=== PATIENT | female | born 1945 | race African-American/Black ===

== ENCOUNTER 2019-03-28 15:23 | Inpatient (IN) | payer MEDICARE ==
[2019-03-28] MEDS ORDERED: LEVALBUTEROL 0.63 MG/3 ML NEBU IH ONE (15:53)
[2019-03-28] MEDS ORDERED: IPRATROPIUM 0.02% NEBU 2.5 ML IH ONE ×2 (15:53→15:55)
[2019-03-28] MEDS ORDERED: LEVALBUTEROL 1.25 MG/3 ML NEB IH ONE (15:55)
--- NOTE | 2019-03-28 16:02 | Emergency Department Report ---
HPI - General Time Seen by Provider: 03/28/19 15:49 - HPI HPI: Room 4 The patient is a 73-year-old female presenting with a chief complaint of weakness. Family states the patient's been coughing for the past 2-3 days and also has had rhinorrhea for one week. Patient had exhibited increased work of breathing and subsequently family brought patient to the ED for evaluation. Patient denies pain including chest pain but just states she feels weak all over. Patient denies shortness of breath but exhibits labored respirations. Patient has noticed bilateral lotion the swelling for several months. Of note the patient recently drove from [place] to [place] Location: [See above] Duration: [See above] Quality: [See above] Severity: [See above] Timing: [See above] Context: [See above] Modifying factors: [See above] Associated signs and symptoms: [see above] ED Past Medical Hx - Past Medical History Hx Hypertension: Yes Hx Diabetes: Yes Additional medical history: Hypercholesterolemia - Surgical History Hx Cholecystectomy: Yes Additional Surgical History: Knee surgery, hip replacement - Family History Family history: no significant - Social History Smoking Status: Never Smoker Substance Use Type: None ED Review of Systems ROS: Stated complaint: CHEST PAIN Other details as noted in HPI Constitutional: diaphoresis Eyes: denies: eye pain ENT: denies: throat pain Respiratory: cough, shortness of breath, other (pleurisy) Cardiovascular: denies: chest pain Endocrine: no symptoms reported Gastrointestinal: vomiting Genitourinary: denies: dysuria Musculoskeletal: denies: back pain Neurological: denies: headache Physical Exam - Physical Exam Physical Exam: GENERAL: The patient is well-developed well-nourished female appearing diaphoretic and pale with labored respirations. [] HEENT: Normocephalic. Atraumatic. Extraocular motions are intact. Patient has moist mucous membranes. NECK: Supple. Trachea midline CHEST/LUNGS: Bibasilar crackles. Increased work of breathing. HEART/CARDIOVASCULAR: Regular. There is tachycardia. There is no gallop rub or murmur. ABDOMEN: Abdomen is soft, nontender. Patient has normal bowel sounds. There is no abdominal distention. SKIN: There is no rash. There is 2+ bilateral lower external he pitting edema. There is no diaphoresis. NEURO: The patient is awake, alert, and oriented. The patient is cooperative. The patient has normal speech MUSCULOSKELETAL: There is no evidence of acute injury. ED Course - Reevaluation(s) Reevaluation #1: 03/28/19 16:58 Patient resting comfortably on BiPAP. When awakened patient states she feels improved - Consultations Consultation #1: 03/28/19 14:52 EMS EKG sent to and discussed with Dr. Velez- no STEMI 03/28/19 19:[address] Velez- recommends initiating heparin drip with bolus ED Medical Decision Making - Lab Data Result diagrams: 03/28/19 16:23 03/28/19 16:23 Laboratory Tests 03/28/19 03/28/19 03/28/19 16:23 16:23 16:23 WBC 9.2 RBC 3.51 L Hgb 9.6 L Hct 34.3 MCV 98 H MCH 27 L MCHC 28 L RDW 17.2 H Plt Count 331 Lymph % (Auto) Care Asst [place] % (Auto) Care Asst Eos % (Auto) Care Asst Baso % (Auto) Care Asst Lymph # Care Asst [place] # Care Asst Eos # Care Asst Baso # Care Asst Seg Neutrophils % Care Asst Seg Neutrophils # Care Asst PT 18.8 H INR 1.55 H APTT 29.7 D-Dimer Sodium 138 Potassium 6.0 H Chloride 105.0 Carbon Dioxide 7 L* Anion Gap 32 BUN 38 H Creatinine 1.9 H Estimated GFR 26 BUN/Creatinine Ratio 20 Glucose 218 H Calcium 9.1 Total Bilirubin 1.00 AST 124 H ALT 48 Alkaline Phosphatase 126 Total Creatine Kinase 95 CK-MB (CK-2) 6.2 H CK-MB (CK-2) Rel Index 6.5 H Troponin T 0.479 H* NT-Pro-B Natriuret Pep > 97509 H Total Protein 7.0 Albumin 4.2 Albumin/Globulin Ratio 1.5 Triglycerides 156 H Cholesterol 156 LDL Cholesterol Direct 93 HDL Cholesterol 56 Cholesterol/HDL Ratio 2.78 TSH Free T4 Influenza A (Rapid) Influenza B (Rapid) 03/28/19 03/28/19 03/28/19 16:23 17:48 19:09 WBC RBC Hgb Hct MCV MCH MCHC RDW Plt Count Lymph % (Auto) [place] % (Auto) Eos % (Auto) Baso % (Auto) Lymph # [place] # Eos # Baso # Seg Neutrophils % Seg Neutrophils # PT INR APTT D-Dimer 1679.54 H Sodium Potassium Chloride Carbon Dioxide Anion Gap BUN Creatinine Estimated GFR BUN/Creatinine Ratio Glucose Calcium Total Bilirubin AST ALT Alkaline Phosphatase Total Creatine Kinase CK-MB (CK-2) CK-MB (CK-2) Rel Index Troponin T 0.432 H* NT-Pro-B Natriuret Pep Total Protein Albumin Albumin/Globulin Ratio Triglycerides Cholesterol LDL Cholesterol Direct HDL Cholesterol Cholesterol/HDL Ratio TSH 3.480 Free T4 1.41 Influenza A (Rapid) Influenza B (Rapid) 03/28/19 Unknown WBC RBC Hgb Hct MCV MCH MCHC RDW Plt Count Lymph % (Auto) [place] % (Auto) Eos % (Auto) Baso % (Auto) Lymph # [place] # Eos # Baso # Seg Neutrophils % Seg Neutrophils # PT INR APTT D-Dimer Sodium Potassium Chloride Carbon Dioxide Anion Gap BUN Creatinine Estimated GFR BUN/Creatinine Ratio Glucose Calcium Total Bilirubin AST ALT Alkaline Phosphatase Total Creatine Kinase CK-MB (CK-2) CK-MB (CK-2) Rel Index Troponin T NT-Pro-B Natriuret Pep Total Protein Albumin Albumin/Globulin Ratio Triglycerides Cholesterol LDL Cholesterol Direct HDL Cholesterol Cholesterol/HDL Ratio TSH Free T4 Influenza A (Rapid) Negative Influenza B (Rapid) Negative - EKG Data -: EKG Interpreted by Me EKG shows normal: sinus rhythm Rate: normal - EKG Data When compared to previous EKG there are: previous EKG unavailable Interpretation: nonspecific ST-T wave yoni (T-wave inversion in leads 1, aVL, V4, V5, V6) - Radiology Data Radiology results: report reviewed (chest x-ray, VQ scan), image reviewed (chest x-ray, VQ scan) interpreted by me: Chest x-ray-right pleural effusion. Cephalization, possible CHF [address] [address] XRay Report Signed Patient: POP DOMINGUEZ MR#: [id number] : 1945 Acct:[id number] Age/Sex: 73 / F ADM Date: 03/28/19 Loc: ED Attending Dr: Ordering Physician: RAUDEL PAN MD Date of Service: 03/28/19 Procedure(s): XR chest 1V ap Accession Number(s): [id number] cc: RAUDEL PAN MD Fluoro Time In Minutes: CHEST 1 VIEW INDICATION: shortness of breath. COMPARISON: None. FINDINGS: Support devices: None. Heart: Mildly enlarged Lungs/Pleura: There is fullness in the right hilar region. There is mild pleural parenchymal disease in the right lower hemithorax. No pneumothorax. IMPRESSION: 1. Fullness in the right hilar region. This could be seen in the setting of right hilar adenopathy but is nonspecific. CT with contrast would be useful to better characterize this. 2. There is mild pleural parenchymal disease in the right lower hemithorax. This could be due to effusion and infiltrate/atelectasis. Signer Name: Ra Monroy MD Signed: 03/28/2019 4:21 PM Workstation Name: [id number] Transcribed By: PAPA Dictated By: Ra Monroy MD Electronically Authenticated By: Ra Monroy MD Signed Date/Time: 03/28/191620 DD/ 19 TD/TT: [facility] [address] [place] [address] Nuclear Medicine Report Signed Patient: POP DOMINGUEZ MR#: [id number] : 1945 Acct:[id number] Age/Sex: 73 / F ADM Date: 03/28/19 Loc: ED Attending Dr: Ordering Physician: RAUDEL PAN MD Date of Service: 03/28/19 Procedure(s): NM lung scan perf/vent Accession Number(s): [id number] cc: RAUDEL PAN MD Nuclear medicine ventilation/perfusion lung scan Indication: Shortness of breath Technique: 12 mCi of Xenon-133 were given by inhalation. 5 mCi of Tc 99m MAA were given by IV. Findings: Comparison with chest radiograph from earlier the same day. Wash-in, equilibrium, and wash-out phases of ventilation are normal. No air-trapping is seen. Perfusion images are unremarkable; specifically, no wedge-shaped, pleural-based, segmental defects are seen. Impression: Low probability for acute PTE. Signer Name: Ra Monroy MD Signed: 03/28/2019 8:52 PM Workstation Name: [id number] Transcribed By: PAPA Dictated By: Ra Monroy MD Electronically Authenticated By: Ra Monroy MD Signed Date/Time: 03/28/192051 DD/ 49 TD/TT: - Differential Diagnosis pneumonia, CHF, pulmonary edema, ACS, PE Critical care attestation.: If time is entered above; I have spent that time in minutes in the direct care of this critically ill patient, excluding procedure time. ED Disposition Clinical Impression: Shortness of breath, Congestive heart failure, Pleural effusion, Hyperkalemia, Renal insufficiency Disposition: OP ADMIT IP TO THIS HOSP Is pt being admited?: Yes Does the pt Need Aspirin: No Condition: Fair Referrals: PRIMARY CARE, [Primary Care Provider] - 3-5 Days Time of Disposition: 21:39 (hospitalist notified (Dr Rodriguez))
[2019-03-28] MEDS ORDERED: ONDANSETRON 4 MG/2 ML INJ IV ONE (16:16)
[2019-03-28] MEDS ORDERED: FUROSEMIDE 40 MG/4 ML INJ IV ONE (16:19)
--- NOTE | 2019-03-28 16:25 | XRay Report ---
CHEST 1 VIEW INDICATION: shortness of breath. COMPARISON: None. FINDINGS: Support devices: None. Heart: Mildly enlarged Lungs/Pleura: There is fullness in the right hilar region. There is mild pleural parenchymal disease in the right lower hemithorax. No pneumothorax. IMPRESSION: 1. Fullness in the right hilar region. This could be seen in the setting of right hilar adenopathy bu t is nonspecific. CT with contrast would be useful to better characterize this. 2. There is mild pleural parenchymal disease in the right lower hemithorax. This could be due to effu gonsalo and infiltrate/atelectasis. Signer Name: Ra Monroy MD Signed: 03/28/2019 4:21 PM Workstation Name: [id number]
[2019-03-28 17:21] LABS: Creatine Kinase MB 6.2 ng/mL (0.0-4.0)
[2019-03-28 17:22] LABS: Alanine Aminotransferase 48 units/L (7-56); Albumin 4.2 g/dL (3.9-5); BUN/Creatinine Ratio 20; Blood Urea Nitrogen 38 mg/dL (7-17); Calcium 9.1 mg/dL (8.4-10.2); Hemolysis Index 7
[2019-03-28] MEDS ORDERED: INSULIN REGULAR, HUMAN 100 UNITS/1 ML IV ONE (17:25)
[2019-03-28] MEDS ORDERED: CALCIUM GLUCONATE 1,000 MG in SODIUM CHLORIDE 0.9% 100 ML IV ONE (17:25)
[2019-03-28] MEDS ORDERED: SODIUM BICARB 8.4% 50 MEQ/50 ML SYRINGE IV ONE (17:25)
[2019-03-28] MEDS ORDERED: DEXTROSE 50% IN WATER (25GM) 50 ML SYRINGE IV ONE (17:25)
[2019-03-28 17:27] LABS: INR 1.55 (0.87-1.13)
[2019-03-28 17:28] LABS: Partial Thromboplastin Time 29.7 Sec. (24.2-36.6)
[2019-03-28 17:37] LABS: Free T4 (Free Thyroxine) 1.41 ng/dL (0.76-1.46); Mean Corpuscular HGB Conc 28 % (30-34); Mean Corpuscular Volume 98 fl (79-97); Platelet Count 331 K/mm3 (140-440); Red Blood Count 3.51 M/mm3 (3.65-5.03); Red Cell Distribution Width 17.2 % (13.2-15.2)
[2019-03-28 17:41] LABS: Hematocrit 34.3 % (30.3-42.9); Hemoglobin 9.6 gm/dl (10.1-14.3)
[2019-03-28 17:45] LABS: Chol/HDL Ratio 2.78 %; HDL Cholesterol 56 mg/dL (40-59); LDL Cholesterol,Direct 93 mg/dL (50-130)
--- NOTE | 2019-03-28 18:53 | Consultation ---
History of Present Illness Consult reason: shortness of breath History of present illness: patient can't speak liberian,history obtained through great grand daughter. Nauseated since yesterday,shortness of breath since this AM,mild vague chest discomfort,EKG done by EMS showed sinus tach with PAC's.ivcd and suggestion of old ASMI noted. No chest pain now,markedly elevated BNP noted,total ck WNL. CXR showed cardiomegaly,?pleural effusion,prominant marcial noted,?chf. Past History Past Medical History: hypertension, other (No known hx. of [place],CHF or arrhtymias.No hx. of cva,pulmonary emboli.). denies: CAD, heart failure, pulmonary embolism, seizures, stroke Social history: , lives with family. denies: smoking Medications and Allergies Allergies Allergy/AdvReac Type Severity Reaction Status Date / Time codeine AdvReac Anaphylaxis Verified 03/28/19 17:31 Penicillins AdvReac Anaphylaxis Verified 03/28/19 17:31 Review of Systems Constitutional: no weight loss Ears, nose, mouth and throat: no ear discharge Breasts: no normal Cardiovascular: chest pain, shortness of breath, dyspnea on exertion, leg edema, no syncope Respiratory: cough Gastrointestinal: nausea Rectal: no bleeding Integumentary: no rash Psychiatric: no disorientation Endocrine: no cold intolerance Hematologic/Lymphatic: no easy bleeding Allergic/Immunologic: no urticaria Physical Examination Vital Signs Pulse Resp 122 H 22 03/28/19 15:34 03/28/19 15:34 General appearance: no acute distress HEENT: Positive: PERRL Neck: Positive: neck supple, trachea midline Cardiac: Positive: S3, Tachycardia. Negative: Audible Murmur Lungs: Positive: Decreased Breath Sounds, Rales Neuro: Positive: Grossly Intact Abdomen: Positive: Unremarkable Female genitourinary: deferred Skin: Negative: Rash Extremities: Present: +2 Edema Results 03/28/19 16:23 03/28/19 16:23 Cardiac Enzymes 03/28/19 Range/Units 16:23 AST 124 H (5-40) units/L CK-MB (CK-2) 6.2 H (0.0-4.0) ng/mL Coagulation 03/28/19 Range/Units 16:23 PT 18.8 H (12.2-14.9) Sec. INR 1.55 H (0.87-1.13) APTT 29.7 (24.2-36.6) Sec. Lipids 03/28/19 Range/Units 16:23 Triglycerides 156 H (2-149) mg/dL Cholesterol 156 (50-199) mg/dL HDL Cholesterol 56 (40-59) mg/dL Cholesterol/HDL Ratio 2.78 % CBC 03/28/19 Range/Units 16:23 WBC 9.2 (4.5-11.0) K/mm3 RBC 3.51 L (3.65-5.03) M/mm3 Hgb 9.6 L (10.1-14.3) gm/dl Hct 34.3 (30.3-42.9) % Plt Count 331 (140-440) K/mm3 Lymph # [employer] Manager [place] # [employer] Manager Eos # [employer] Manager Baso # [employer] Manager Comprehensive Metabolic Panel 03/28/19 Range/Units 16:23 Sodium 138 (137-145) mmol/L Potassium 6.0 H (3.6-5.0) mmol/L Chloride 105.0 (98-107) mmol/L Carbon Dioxide 7 L* (22-30) mmol/L BUN 38 H (7-17) mg/dL Creatinine 1.9 H (0.7-1.2) mg/dL Glucose 218 H (65-100) mg/dL Calcium 9.1 (8.4-10.2) mg/dL AST 124 H (5-40) units/L ALT 48 (7-56) units/L Alkaline Phosphatase 126 (35-129) units/L Total Protein 7.0 (6.3-8.2) g/dL Albumin 4.2 (3.9-5) g/dL - EKG Interpretation EKG: sinus rhythm (ivcd,ST-T changes with ?possible old ASMI.) Assessment and Plan 73 yo female,who is on medication for a while,ran out of meds recently,feeling week,increasing leg swelling of few weeks along with coughing,nausea,SOB,no significant chest pain.Presently symptoms and signs suggestive of chf,with underlying ?UR,labs showing anemia,elevated creatinine.Agree with lasix,will get more information from family when available.Reevaluate in AM.Also elevated troponins,will get serial troponins and echo.
[2019-03-28] MEDS ORDERED: HEPARIN 10,000 UNITS/10 ML VIAL IV ONE (19:03)
--- NOTE | 2019-03-28 20:56 | Nuclear Medicine Report ---
Nuclear medicine ventilation/perfusion lung scan Indication: Shortness of breath Technique: 12 mCi of Xenon-133 were given by inhalation. 5 mCi of Tc 99m MAA were given by IV. Findings: Comparison with chest radiograph from earlier the same day. Wash-in, equilibrium, and wash-out phases of ventilation are normal. No air-trapping is seen. Perfusion images are unremarkable; specifically, no wedge-shaped, pleural-based, segmental defects ar e seen. Impression: Low probability for acute PTE. Signer Name: Ra Monroy MD Signed: 03/28/2019 8:52 PM Workstation Name: [id number]
[2019-03-28] MEDS ORDERED: NITROGLYCERIN 0.4 MG TAB SUBL SL PRN (22:35)
[2019-03-28] MEDS ORDERED: hydrALAZINE 20 MG/1 ML INJ IV PRN (22:35)
--- NOTE | 2019-03-28 22:54 | History and Physical Report ---
History of Present Illness Date of examination: 03/28/19 Date of admission: 03/28/19 22:03 Chief complaint: Cough and chest congestion Chest pain Past History Past Medical History: hypertension, hyperlipidemia, other (No known hx. of [place],CHF or arrhtymias.No hx. of cva,pulmonary emboli.). denies: heart failure, pulmonary embolism, seizures, stroke Past Surgical History: total hip replacement, total knee replacement Social history: , lives with family. denies: smoking Family history: no significant family history Medications and Allergies Allergies Allergy/AdvReac Type Severity Reaction Status Date / Time codeine AdvReac Anaphylaxis Verified 03/28/19 17:31 Penicillins AdvReac Anaphylaxis Verified 03/28/19 17:31 Active Meds: Active Medications Aspirin (Ecotrin) 325 mg PO QDAY SUDHIR Furosemide (Lasix) 40 mg IV BID@0600,1800 SUDHIR Hydralazine HCl (Apresoline) 10 mg IV Q6HR PRN PRN Reason: FOR SBP > target Heparin Sodium/Sodium Chloride (Heparin/ 0.45% Nacl-25,000 Unit/500 Ml) 25,000 unit in 500 mls @ 20 mls/hr IV TITRATE SUDHIR; Protocol Levofloxacin/Dextrose (Levaquin 750mg/150ml) 750 mg in 150 mls @ 100 mls/hr IV Q24HR SUDHIR; Protocol Nitroglycerin (Nitrostat) 0.4 mg SL .Q5MIN PRN PRN Reason: Chest Pain Sodium Chloride (Sodium Chloride Flush Syringe 10 Ml) 10 ml IV PRN PRN PRN Reason: LINE FLUSH Review of Systems Cardiovascular: chest pain Respiratory: shortness of breath Exam - Constitutional Vitals: Temp Pulse Resp BP Pulse Ox 93 H 21 140/81 100 03/28/19 21:05 03/28/19 21:05 03/28/19 21:05 03/28/19 21:05 General appearance: Present: mild distress, well-nourished - EENT Eyes: Present: PERRL, EOM intact ENT: hearing intact, clear oral mucosa, dentition normal - Neck Neck: Present: supple, normal ROM - Respiratory Respiratory effort: normal Respiratory: bilateral: rales (In the bases bilaterally) - Cardiovascular Rhythm: regular Heart Sounds: Present: S1 & S2 - Extremities Extremities: no ischemia, pulses intact, Full ROM Extremity abnormal: edema (Trace ankle edema bilaterally) Peripheral Pulses: within normal limits - Abdominal General gastrointestinal: Present: soft, non-tender, non-distended - Integumentary Integumentary: Present: clear, warm, dry - Musculoskeletal Musculoskeletal: strength equal bilaterally - Psychiatric Psychiatric: appropriate mood/affect, intact judgment & insight, cooperative - Neurologic Neurologic: CNII-XII intact, moves all extremities Results - Labs CBC & Chem 7: 03/28/19 23:17 03/28/19 23:17 Labs: Abnormal lab results 03/28/19 03/28/19 03/28/19 Range/Units 16:23 16:23 16:23 RBC 3.51 L (3.65-5.03) M/mm3 Hgb 9.6 L (10.1-14.3) gm/dl MCV 98 H (79-97) fl MCH 27 L (28-32) pg MCHC 28 L (30-34) % RDW 17.2 H (13.2-15.2) % PT 18.8 H (12.2-14.9) Sec. INR 1.55 H (0.87-1.13) D-Dimer (0-234) ng/mlDDU Potassium 6.0 H (3.6-5.0) mmol/L Carbon Dioxide 7 L* (22-30) mmol/L BUN 38 H (7-17) mg/dL Creatinine 1.9 H (0.7-1.2) mg/dL Glucose 218 H (65-100) mg/dL AST 124 H (5-40) units/L CK-MB (CK-2) 6.2 H (0.0-4.0) ng/mL CK-MB (CK-2) Rel Index 6.5 H (0-4) Troponin T 0.479 H* (0.00-0.029) ng/mL NT-Pro-B Natriuret Pep > 40538 H (0-900) pg/mL Triglycerides 156 H (2-149) mg/dL 03/28/19 03/28/19 Range/Units 17:48 19:09 RBC (3.65-5.03) M/mm3 Hgb (10.1-14.3) gm/dl MCV (79-97) fl MCH (28-32) pg MCHC (30-34) % RDW (13.2-15.2) % PT (12.2-14.9) Sec. INR (0.87-1.13) D-Dimer 1679.54 H (0-234) ng/mlDDU Potassium (3.6-5.0) mmol/L Carbon Dioxide (22-30) mmol/L BUN (7-17) mg/dL Creatinine (0.7-1.2) mg/dL Glucose (65-100) mg/dL AST (5-40) units/L CK-MB (CK-2) (0.0-4.0) ng/mL CK-MB (CK-2) Rel Index (0-4) Troponin T 0.432 H* (0.00-0.029) ng/mL NT-Pro-B Natriuret Pep (0-900) pg/mL Triglycerides (2-149) mg/dL Assessment and Plan - Patient Problems (1) DVT prophylaxis Current Visit: Yes Status: Acute (2) Full code status Current Visit: Yes Status: Acute (3) Congestive heart failure Current Visit: Yes Status: Acute (4) Hyperkalemia Current Visit: Yes Status: Acute (5) Pleural effusion Current Visit: Yes Status: Acute
[2019-03-28] MEDS ORDERED: DEXTROSE 50% IN WATER (25GM) 50 ML SYRINGE IV PRN (23:02)
[2019-03-28 23:34] LABS: Basophils % (Auto) 0.1 % (0.0-1.8); Hemoglobin 8.2 gm/dl (10.1-14.3); Lymphocytes # (Auto) 0.4 K/mm3 (1.2-5.4); Lymphocytes % (Auto) 5.9 % (13.4-35.0); Mean Corpuscular HGB Conc 32 % (30-34); Mean Corpuscular Volume 88 fl (79-97); Monocytes # (Auto) 0.3 K/mm3 (0.0-0.8); Monocytes % (Auto) 4.6 % (0.0-7.3); Platelet Count 180 K/mm3 (140-440); Red Blood Count 2.92 M/mm3 (3.65-5.03)
[2019-03-28 23:38] LABS: Hematocrit 25.8 % (30.3-42.9)
[2019-03-28 23:58] LABS: Calcium 9.1 mg/dL (8.4-10.2)
[2019-03-29] MEDS ORDERED: HEPARIN 5,000 UNIT/1 ML VIAL ONE (00:41)
[2019-03-29] MEDS ORDERED: HEPARIN/ 0.45% NACL DRIP 25,000 UNIT/500 ML BAG ONE (00:42)
[2019-03-29] MEDS: HEPARIN/ 0.45% NACL DRIP 25,000 UNIT/500 ML BAG IV SCH (00:46)
[2019-03-29 04:52] LABS: Basophils % (Auto) 0.1 % (0.0-1.8); Hematocrit 26.3 % (30.3-42.9); Hemoglobin 8.1 gm/dl (10.1-14.3); Lymphocytes # (Auto) 0.7 K/mm3 (1.2-5.4); Lymphocytes % (Auto) 10.1 % (13.4-35.0); Mean Corpuscular HGB Conc 31 % (30-34); Mean Corpuscular Volume 87 fl (79-97); Monocytes # (Auto) 0.4 K/mm3 (0.0-0.8); Monocytes % (Auto) 5.9 % (0.0-7.3); Platelet Count 198 K/mm3 (140-440); Red Blood Count 3.01 M/mm3 (3.65-5.03); Red Cell Distribution Width 16.3 % (13.2-15.2)
[2019-03-29 05:08] LABS: Calcium 9.1 mg/dL (8.4-10.2)
[2019-03-29] MEDS: INSULIN LISPRO 100 UNIT/ML SUB-Q SCH ×4 (07:34→22:40)
[2019-03-29] MEDS ORDERED: FUROSEMIDE 40 MG/4 ML INJ ONE ×2 (07:40→20:16)
[2019-03-29] MEDS: FUROSEMIDE 40 MG/4 ML INJ IV SCH ×2 (07:42→20:16)
--- NOTE | 2019-03-29 12:29 | Consultation ---
History of Present Illness Consult date: 03/29/19 Requesting physician: DORIS STEPHENS History of present illness: The patient is a 73-year-old female presenting with a chief complaint of weaknes s. Family states the patient's been coughing for the past 2-3 days and also has had rhinorrhea for one week. Patient had exhibited increased work of breathing and subsequently family brought patient to the ED for evaluation. Patient denies pain including chest pain but just states she feels weak all over. Patient denies shortness of breath but exhibits labored respirations. Patient has noticed bilateral lotion the swelling for several months. Of note the patient recently drove from [place] to [place]. I have been consulted fro critical care management. Patient was seen and examined. Vitals, labs, medications, chart and imaging reviewed. She is on BIPAP and her is at the bedside. Past History Past Medical History: hypertension, hyperlipidemia, other (No known hx. of [place],CHF or arrhtymias.No hx. of cva,pulmonary emboli.). denies: heart failure, pulmonary embolism, seizures, stroke Past Surgical History: total hip replacement, total knee replacement Social history: , lives with family. denies: smoking Family history: no significant family history Medications and Allergies Allergies Allergy/AdvReac Type Severity Reaction Status Date / Time codeine AdvReac Anaphylaxis Verified 03/28/19 17:31 Penicillins AdvReac Anaphylaxis Verified 03/28/19 17:31 Active Meds: Active Medications Aspirin (Ecotrin) 325 mg PO QDAY SUDHIR Dextrose (D50w (25gm) Syringe) 0 ml IV Q30MIN PRN; Protocol PRN Reason: Hypoglycemia Furosemide (Lasix) 40 mg IV BID@0600,1800 SUDHIR Last Admin: 03/29/19 07:42 Dose: 40 mg Documented by: Hydralazine HCl (Apresoline) 10 mg IV Q6H PRN PRN Reason: FOR SBP > target Heparin Sodium/Sodium Chloride (Heparin/ 0.45% Nacl-25,000 Unit/500 Ml) 25,000 unit in 500 mls @ 20 mls/hr IV TITRATE SUDHIR; Protocol Last Titration: 03/29/19 09:13 Dose: 0 units/hr, 0 mls/hr Documented by: Levofloxacin/Dextrose (Levaquin 750mg/150ml) 750 mg in 150 mls @ 100 mls/hr IV Q48HR SUDHIR; Protocol Last Admin: 03/29/19 10:26 Dose: 100 mls/hr Documented by: Insulin Human Lispro (Humalog) 0 unit SUB-Q ACHS SUDHIR; Protocol Last Admin: 03/29/19 07:34 Dose: Not Given Documented by: Metoprolol Tartrate (Metoprolol) 12.5 mg PO BID [facility] Nitroglycerin (Nitrostat) 0.4 mg SL .Q5MIN PRN PRN Reason: Chest Pain Sodium Chloride (Sodium Chloride Flush Syringe 10 Ml) 10 ml IV PRN PRN PRN Reason: LINE FLUSH Physical Examination Vital signs: Vital Signs Pulse Resp 122 H 22 03/28/19 15:34 03/28/19 15:34 Vitals reviewed. GENERAL: well-developed elderly overweight woman, in moderate respiratory distress on BIPAP via a full face mask HEENT: Normocephalic. Atraumatic. No conjunctival congestion or icterus. Patient has moist mucous membranes. NECK: Supple. Trachea midline. CHEST/LUNGS: diminished BS auscultated bilaterall, Rales HEART/CARDIOVASCULAR: Regular in rate and rhythm. S1 and S2 positive Tachycardia ABDOMEN: Abdomen is soft, nontender. Patient has normal bowel sounds. SKIN: There is no rash. Warm and dry. NEURO: No focal motor deficit. Follows command. MUSCULOSKELETAL: No joint effusion or tenderness. EXTRIMITY: no cyanosis or clubbing. PSYCH: Cooperative. Results - Laboratory Findings CBC and BMP: 04/01/19 07:05 04/01/19 07:05 PT/INR, D-dimer PT 18.8 Sec. (12.2-14.9) H 03/28/19 16:23 INR 1.55 (0.87-1.13) H 03/28/19 16:23 D-Dimer 1679.54 ng/mlDDU (0-234) H 03/28/19 17:48 Abnormal lab findings: Abnormal Labs 03/28/19 03/28/19 03/28/19 16:23 16:23 16:23 RBC 3.51 L Hgb 9.6 L Hct MCV 98 H MCH 27 L MCHC 28 L RDW 17.2 H Lymph % (Auto) Lymph # Seg Neutrophils % PT 18.8 H INR 1.55 H D-Dimer Heparin Anti-Xa Level Potassium 6.0 H Chloride Carbon Dioxide 7 L* BUN 38 H Creatinine 1.9 H Glucose 218 H POC Glucose AST 124 H CK-MB (CK-2) 6.2 H CK-MB (CK-2) Rel Index 6.5 H Troponin T 0.479 H* NT-Pro-B Natriuret Pep > 76795 H Triglycerides 156 H 03/28/19 03/28/19 03/28/19 17:48 19:09 23:17 RBC 2.92 L Hgb 8.2 L Hct 25.8 L D MCV MCH MCHC RDW 16.0 H Lymph % (Auto) 5.9 L Lymph # 0.4 L Seg Neutrophils % 89.4 H PT INR D-Dimer 1679.54 H Heparin Anti-Xa Level Potassium Chloride Carbon Dioxide BUN Creatinine Glucose POC Glucose AST CK-MB (CK-2) CK-MB (CK-2) Rel Index Troponin T 0.432 H* NT-Pro-B Natriuret Pep Triglycerides 03/28/19 03/29/19 03/29/19 23:17 00:49 03:33 RBC 3.01 L Hgb 8.1 L Hct 26.3 L MCV MCH 27 L MCHC RDW 16.3 H Lymph % (Auto) 10.1 L Lymph # 0.7 L Seg Neutrophils % 83.9 H PT INR D-Dimer Heparin Anti-Xa Level Potassium 5.3 H Chloride Carbon Dioxide 17 L D BUN 45 H Creatinine 2.0 H Glucose 251 H POC Glucose AST CK-MB (CK-2) CK-MB (CK-2) Rel Index Troponin T 0.599 H* D NT-Pro-B Natriuret Pep Triglycerides 03/29/19 03/29/19 03/29/19 03:33 04:38 07:35 RBC Hgb Hct MCV MCH MCHC RDW Lymph % (Auto) Lymph # Seg Neutrophils % PT INR D-Dimer Heparin Anti-Xa Level 0.79 H Potassium 5.3 H Chloride 108.0 H Carbon Dioxide 19 L BUN 47 H Creatinine 2.1 H Glucose 173 H POC Glucose AST CK-MB (CK-2) CK-MB (CK-2) Rel Index Troponin T 0.678 H* NT-Pro-B Natriuret Pep Triglycerides 03/29/19 03/29/19 07:42 12:03 RBC Hgb Hct MCV MCH MCHC RDW Lymph % (Auto) Lymph # Seg Neutrophils % PT INR D-Dimer Heparin Anti-Xa Level Potassium Chloride Carbon Dioxide BUN Creatinine Glucose POC Glucose 139 H 165 H AST CK-MB (CK-2) CK-MB (CK-2) Rel Index Troponin T NT-Pro-B Natriuret Pep Triglycerides - Diagnostic Findings Chest x-ray: image reviewed (Bilateral alveolar infiltraes with right pleural ef fusion. Low lung volumes) Assessment and Plan Acute hypoxic respiratory failure Right pleural effusion Acute kidney injury- Vasomotor VINEET in the setting of Acute CHF. Acute CHF, likely systolic NSTEMI likely type 2 Hyperkalemia Suspected pneumonia: DM type 2
[2019-03-29] MEDS ORDERED: INSULIN LISPRO 100 UNIT/ML SUB-Q ONE ×2 (12:40→20:15)
--- NOTE | 2019-03-29 13:48 | Consultation ---
History of Present Illness - Reason for Consult Consult date: 03/29/19 acute renal failure, chronic renal failure, hyperkalemia - History of Present Illness The patient is a 73 YO female with history significant for DM-2 and HTN who presented to [facility] ED with complaint of cough and feeling unwell. Patient states that she having non-productive coughing for the past week and associated with rhinorrhea. Patient had exhibited increased work of breathing and subsequently family brought patient to the ED for evaluation. Patient denies CP, N, V, abd pain, leg swelling or fever. Of note the patient recently drove from [place] to [place]. Labs significant for Creat 1.9, K 6 and bicarb 7. Nephrology was consulted for evaluation and treatment. Past History Past Medical History: hypertension, hyperlipidemia Past Surgical History: total hip replacement, total knee replacement Social history: , lives with family. denies: smoking Family history: no significant family history Medications and Allergies Allergies Allergy/AdvReac Type Severity Reaction Status Date / Time codeine AdvReac Anaphylaxis Verified 03/28/19 17:31 Penicillins AdvReac Anaphylaxis Verified 03/28/19 17:31 Active Meds: Active Medications Aspirin (Ecotrin) 325 mg PO QDAY SUDHIR Dextrose (D50w (25gm) Syringe) 0 ml IV Q30MIN PRN; Protocol PRN Reason: Hypoglycemia Furosemide (Lasix) 40 mg IV BID@0600,1800 [facility] Last Admin: 03/29/19 07:42 Dose: 40 mg Documented by: Hydralazine HCl (Apresoline) 10 mg IV Q6H PRN PRN Reason: FOR SBP > target Heparin Sodium/Sodium Chloride (Heparin/ 0.45% Nacl-25,000 Unit/500 Ml) 25,000 unit in 500 mls @ 20 mls/hr IV TITRATE SUDHIR; Protocol Last Titration: 03/29/19 09:13 Dose: 0 units/hr, 0 mls/hr Documented by: Levofloxacin/Dextrose (Levaquin 750mg/150ml) 750 mg in 150 mls @ 100 mls/hr IV Q48HR SUDHIR; Protocol Last Admin: 03/29/19 10:26 Dose: 100 mls/hr Documented by: Insulin Human Lispro (Humalog) 0 unit SUB-Q ACHS SUDHIR; Protocol Last Admin: 03/29/19 12:40 Dose: 2 unit Documented by: Metoprolol Tartrate (Metoprolol) 12.5 mg PO BID SUDHIR Nitroglycerin (Nitrostat) 0.4 mg SL .Q5MIN PRN PRN Reason: Chest Pain Sodium Chloride (Sodium Chloride Flush Syringe 10 Ml) 10 ml IV PRN PRN PRN Reason: LINE FLUSH Review of Systems Constitutional: weakness, no weight loss, no weight gain, no fever Breasts: deferred Cardiovascular: shortness of breath, high blood pressure, no chest pain, no edema Respiratory: cough, shortness of breath Gastrointestinal: no abdominal pain, no nausea, no vomiting Exam - Vital Signs Vital signs: Vital Signs Pulse Resp 122 H 22 03/28/19 15:34 03/28/19 15:34 - General Appearance General appearance: well-developed, well-nourished, appears stated age, obese, other (no distress) EENT: ATNC, PERRL, hearing intact, vision intact Neck: Present: neck supple, trachea midline Respiratory: Rales Heart: regular, S1S2, no murmurs Gastrointestinal: Present: normoactive bowel sounds. Absent: tenderness, distended Integumentary: no rash, warm and dry Neurologic: no focal deficit, no asterixis Musculoskeletal: Present: other (no edema) Results - Lab Results 03/29/19 03:33 03/29/19 03:33 Most recent lab results Calcium 9.1 mg/dL (8.4-10.2) 03/29/19 03:33 - Image Kidney/bladder ultrasound: pending Assessment and Plan 1. Acute kidney injury: Vasomotor VINEET in the setting of Acute CHF. Baseline renal function is unknown. Renal US and urine studies ordered. Monitor renal function. Renal prognosis is guarded. Avoid nephrotoxic agents. Meds dosage based on GFR. 2. FEN: Anion-gap metabolic acidosis, improving. Hyperkalemia, improving. Meds ordered. Monitor lytes. 3. Decompensated CHF: Followed by Cards. Diuretics. 4. NSTEMI. 5. Normochromic anemia: POA. 6. Suspected pneumonia: Continue antibiotics 7. DM type 2. 8. HTN.
[2019-03-29] MEDS ORDERED: SODIUM POLYSTYRENE 15 GM/60 ML ORAL LIQD PO ONE (14:00)
[2019-03-29 14:02] LABS: INR 1.53 (0.87-1.13)
--- NOTE | 2019-03-29 15:33 | Progress Note ---
Assessment and Plan / Acute hypoxic respiratory failure - likely from CHF exacerbation on pleural effusion - cont diuretics, thoracentesis ordered - wean off from Bipap, pulmonary consult / Acute kidney injury: Vasomotor VINEET in the setting of Acute CHF. Baseline renal function is unknown. Renal US and urine studies ordered. Monitor renal function. Avoid nephrotoxic agents. nephrology consulted / Acute CHF, likely systolic Followed by Cards. cont Diuretics.monitor ons/os follow 2d echo /NSTEMI likely type 2 - ischemic work up per cardiology - cont aspirin and statin - on heparin drip / Hyperkalemia from declining renal function, kayexalate ordered, follow bmp /Normochromic anemia: monitor h/h, likely from CD / Suspected pneumonia: Continue antibiotics / DM type 2 consistent carb diet, SSI /HTN - hydralazine iv as needed - monitor BP, adjust BP meds as needed /Dvt Px, heparin drip, will be hold after midnight for thoracentesis Brief History: The patient is a 73 YO female with history significant for DM-2 and HTN who presented to [facility] ED with complaint of cough and feeling unwell. Patient states that she having non-productive coughing for the past week and associated with rhinorrhea. Patient had exhibited increased work of breathing and subsequently family brought patient to the ED for evaluation. Of note the patient recently drove from [place] to [place]. Labs significant for Creat 1.9, K 6 and bicarb 7. Radiological data: cxr : fullness right hillar region, right pleural effusion VQ scan - low prob for PE Hospitalist Physical exam: GENERAL: well-developed elderly obese female lying on bed appeared to be in mild discomfort. HEENT: Normocephalic. Atraumatic. No conjunctival congestion or icterus. Patient has moist mucous membranes. NECK: Supple. Trachea midline. CHEST/LUNGS: diminished BS auscultated bilaterally, breathing labored. on bipap HEART/CARDIOVASCULAR: Regular in rate and rhythm. S1 and S2 positive. tachycardic ABDOMEN: Abdomen is soft, nontender. Patient has normal bowel sounds. SKIN: There is no rash. Warm and dry. NEURO: No focal motor deficit. Follows command. MUSCULOSKELETAL: No joint effusion or tenderness. EXTRIMITY: no cyanosis or clubbing. PSYCH: Cooperative. Subjective Date of service: 03/29/19 Interval history: Patient seen and examined. Medical records and medication list reviewed. No acute event overnight noted by the RN. Patient denies any chest pain but has sig difficulty breathing on bipap. Discussed plan of care at bedside with patient and family. Objective - Constitutional Vitals: Vital Signs - 12hr 03/29/19 03/29/19 03/29/19 04:12 07:30 07:45 Temperature 98.6 F Pulse Rate 87 86 Respiratory 22 16 Rate Blood Pressure Blood Pressure 136/76 [Left] O2 Sat by Pulse 100 100 Oximetry 03/29/19 03/29/19 03/29/19 08:00 10:30 11:30 Temperature Pulse Rate 87 86 86 Respiratory 26 H 16 16 Rate Blood Pressure 136/76 Blood Pressure 145/70 141/76 [Left] O2 Sat by Pulse 100 100 98 Oximetry 03/29/19 03/29/19 03/29/19 13:30 14:00 14:30 Temperature 98.6 F Pulse Rate 80 88 88 Respiratory 16 20 20 Rate Blood Pressure 136/76 Blood Pressure 134/76 135/68 [Left] O2 Sat by Pulse 97 98 98 Oximetry 03/29/19 15:18 Temperature Pulse Rate Respiratory Rate Blood Pressure Blood Pressure [Left] O2 Sat by Pulse 96 Oximetry - Labs CBC & Chem 7: 03/29/19 03:33 03/29/19 03:33 Labs: Abnormal lab results 03/28/19 03/28/19 03/28/19 Range/Units 16:23 16:23 16:23 RBC 3.51 L (3.65-5.03) M/mm3 Hgb 9.6 L (10.1-14.3) gm/dl Hct (30.3-42.9) % MCV 98 H (79-97) fl MCH 27 L (28-32) pg MCHC 28 L (30-34) % RDW 17.2 H (13.2-15.2) % Lymph % (Auto) (13.4-35.0) % Lymph # (1.2-5.4) K/mm3 Seg Neutrophils % (40.0-70.0) % PT 18.8 H (12.2-14.9) Sec. INR 1.55 H (0.87-1.13) D-Dimer (0-234) ng/mlDDU Heparin Anti-Xa Level (0.3-0.7) U.I./ml Potassium 6.0 H (3.6-5.0) mmol/L Chloride (98-107) mmol/L Carbon Dioxide 7 L* (22-30) mmol/L BUN 38 H (7-17) mg/dL Creatinine 1.9 H (0.7-1.2) mg/dL Glucose 218 H (65-100) mg/dL POC Glucose (70-105) AST 124 H (5-40) units/L CK-MB (CK-2) 6.2 H (0.0-4.0) ng/mL CK-MB (CK-2) Rel Index 6.5 H (0-4) Troponin T 0.479 H* (0.00-0.029) ng/mL NT-Pro-B Natriuret Pep > 50747 H (0-900) pg/mL Triglycerides 156 H (2-149) mg/dL 03/28/19 03/28/19 03/28/19 Range/Units 17:48 19:09 23:17 RBC 2.92 L (3.65-5.03) M/mm3 Hgb 8.2 L (10.1-14.3) gm/dl Hct 25.8 L D (30.3-42.9) % MCV (79-97) fl MCH (28-32) pg MCHC (30-34) % RDW 16.0 H (13.2-15.2) % Lymph % (Auto) 5.9 L (13.4-35.0) % Lymph # 0.4 L (1.2-5.4) K/mm3 Seg Neutrophils % 89.4 H (40.0-70.0) % PT (12.2-14.9) Sec. INR (0.87-1.13) D-Dimer 1679.54 H (0-234) ng/mlDDU Heparin Anti-Xa Level (0.3-0.7) U.I./ml Potassium (3.6-5.0) mmol/L Chloride (98-107) mmol/L Carbon Dioxide (22-30) mmol/L BUN (7-17) mg/dL Creatinine (0.7-1.2) mg/dL Glucose (65-100) mg/dL POC Glucose (70-105) AST (5-40) units/L CK-MB (CK-2) (0.0-4.0) ng/mL CK-MB (CK-2) Rel Index (0-4) Troponin T 0.432 H* (0.00-0.029) ng/mL NT-Pro-B Natriuret Pep (0-900) pg/mL Triglycerides (2-149) mg/dL 03/28/19 03/29/19 03/29/19 Range/Units 23:17 00:49 03:33 RBC 3.01 L (3.65-5.03) M/mm3 Hgb 8.1 L (10.1-14.3) gm/dl Hct 26.3 L (30.3-42.9) % MCV (79-97) fl MCH 27 L (28-32) pg MCHC (30-34) % RDW 16.3 H (13.2-15.2) % Lymph % (Auto) 10.1 L (13.4-35.0) % Lymph # 0.7 L (1.2-5.4) K/mm3 Seg Neutrophils % 83.9 H (40.0-70.0) % PT (12.2-14.9) Sec. INR (0.87-1.13) D-Dimer (0-234) ng/mlDDU Heparin Anti-Xa Level (0.3-0.7) U.I./ml Potassium 5.3 H (3.6-5.0) mmol/L Chloride (98-107) mmol/L Carbon Dioxide 17 L D (22-30) mmol/L BUN 45 H (7-17) mg/dL Creatinine 2.0 H (0.7-1.2) mg/dL Glucose 251 H (65-100) mg/dL POC Glucose (70-105) AST (5-40) units/L CK-MB (CK-2) (0.0-4.0) ng/mL CK-MB (CK-2) Rel Index (0-4) Troponin T 0.599 H* D (0.00-0.029) ng/mL NT-Pro-B Natriuret Pep (0-900) pg/mL Triglycerides (2-149) mg/dL 03/29/19 03/29/19 03/29/19 Range/Units 03:33 04:38 07:35 RBC (3.65-5.03) M/mm3 Hgb (10.1-14.3) gm/dl Hct (30.3-42.9) % MCV (79-97) fl MCH (28-32) pg MCHC (30-34) % RDW (13.2-15.2) % Lymph % (Auto) (13.4-35.0) % Lymph # (1.2-5.4) K/mm3 Seg Neutrophils % (40.0-70.0) % PT (12.2-14.9) Sec. INR (0.87-1.13) D-Dimer (0-234) ng/mlDDU Heparin Anti-Xa Level 0.79 H (0.3-0.7) U.I./ml Potassium 5.3 H (3.6-5.0) mmol/L Chloride 108.0 H (98-107) mmol/L Carbon Dioxide 19 L (22-30) mmol/L BUN 47 H (7-17) mg/dL Creatinine 2.1 H (0.7-1.2) mg/dL Glucose 173 H (65-100) mg/dL POC Glucose (70-105) AST (5-40) units/L CK-MB (CK-2) (0.0-4.0) ng/mL CK-MB (CK-2) Rel Index (0-4) Troponin T 0.678 H* (0.00-0.029) ng/mL NT-Pro-B Natriuret Pep (0-900) pg/mL Triglycerides (2-149) mg/dL 03/29/19 03/29/19 03/29/19 Range/Units 07:42 12:03 13:20 RBC (3.65-5.03) M/mm3 Hgb (10.1-14.3) gm/dl Hct (30.3-42.9) % MCV (79-97) fl MCH (28-32) pg MCHC (30-34) % RDW (13.2-15.2) % Lymph % (Auto) (13.4-35.0) % Lymph # (1.2-5.4) K/mm3 Seg Neutrophils % (40.0-70.0) % PT 18.6 H (12.2-14.9) Sec. INR 1.53 H (0.87-1.13) D-Dimer (0-234) ng/mlDDU Heparin Anti-Xa Level (0.3-0.7) U.I./ml Potassium (3.6-5.0) mmol/L Chloride (98-107) mmol/L Carbon Dioxide (22-30) mmol/L BUN (7-17) mg/dL Creatinine (0.7-1.2) mg/dL Glucose (65-100) mg/dL POC Glucose 139 H 165 H (70-105) AST (5-40) units/L CK-MB (CK-2) (0.0-4.0) ng/mL CK-MB (CK-2) Rel Index (0-4) Troponin T (0.00-0.029) ng/mL NT-Pro-B Natriuret Pep (0-900) pg/mL Triglycerides (2-149) mg/dL 03/29/19 Range/Units 13:57 RBC (3.65-5.03) M/mm3 Hgb (10.1-14.3) gm/dl Hct (30.3-42.9) % MCV (79-97) fl MCH (28-32) pg MCHC (30-34) % RDW (13.2-15.2) % Lymph % (Auto) (13.4-35.0) % Lymph # (1.2-5.4) K/mm3 Seg Neutrophils % (40.0-70.0) % PT (12.2-14.9) Sec. INR (0.87-1.13) D-Dimer (0-234) ng/mlDDU Heparin Anti-Xa Level (0.3-0.7) U.I./ml Potassium (3.6-5.0) mmol/L Chloride (98-107) mmol/L Carbon Dioxide (22-30) mmol/L BUN (7-17) mg/dL Creatinine (0.7-1.2) mg/dL Glucose (65-100) mg/dL POC Glucose 133 H (70-105) AST (5-40) units/L CK-MB (CK-2) (0.0-4.0) ng/mL CK-MB (CK-2) Rel Index (0-4) Troponin T (0.00-0.029) ng/mL NT-Pro-B Natriuret Pep (0-900) pg/mL Triglycerides (2-149) mg/dL
--- NOTE | 2019-03-29 16:31 | Progress Note ---
Assessment and Plan Optimize BPs - increase lopressor. Continue diuresis as tolerated - nephrology following. Await echo. Pt is pending thoracentesis. Consider ischemic evaluation once medically stabilized. The patient has been seen in conjunction with Dr. Hernandez who agrees with the assessment and plan of care. - Patient Problems (1) Acute heart failure Current Visit: Yes Status: Acute (2) Acute on chronic renal failure Current Visit: Yes Status: Acute (3) Hyperkalemia Current Visit: Yes Status: Acute (4) NSTEMI (non-ST elevated myocardial infarction) Current Visit: Yes Status: Acute Plan to address problem: suspect type II (5) HTN (hypertension) Current Visit: Yes Status: Acute Subjective Date of service: 03/29/19 Principal diagnosis: HF Interval history: pt resting in bed, still with c/o sob. at bedside. pending thoracentesis. Objective Last Vital Signs Temp 98.6 F 03/29/19 13:30 Pulse 88 03/29/19 14:30 Resp 20 03/29/19 14:30 BP 135/68 03/29/19 14:30 Pulse Ox 96 03/29/19 15:18 - Physical Examination General: No Apparent Distress HEENT: Positive: PERRL Neck: Positive: neck supple, trachea midline Cardiac: Positive: Reg Rate and Rhythm, S1/S2 Lungs: Positive: Decreased Breath Sounds Neuro: Positive: Grossly Intact Abdomen: Positive: Unremarkable Skin: Negative: Rash Extremities: Present: +2 Edema - Labs and Meds Cardiac Enzymes 03/28/19 Range/Units 16:23 AST 124 H (5-40) units/L CK-MB (CK-2) 6.2 H (0.0-4.0) ng/mL Coagulation 03/28/19 03/29/19 Range/Units 16:23 13:20 PT 18.8 H 18.6 H (12.2-14.9) Sec. INR 1.55 H 1.53 H (0.87-1.13) APTT 29.7 (24.2-36.6) Sec. Lipids 03/28/19 Range/Units 16:23 Triglycerides 156 H (2-149) mg/dL Cholesterol 156 (50-199) mg/dL HDL Cholesterol 56 (40-59) mg/dL Cholesterol/HDL Ratio 2.78 % CBC 12/03/28/19 03/29/19 Range/Units 16:23 23:17 03:33 WBC 9.2 6.8 7.0 (4.5-11.0) K/mm3 RBC 3.51 L 2.92 L 3.01 L (3.65-5.03) M/mm3 Hgb 9.6 L 8.2 L 8.1 L (10.1-14.3) gm/dl Hct 34.3 25.8 L D 26.3 L (30.3-42.9) % Plt Count 331 180 198 (140-440) K/mm3 Lymph # Installation And Rep[employer] Technician 0.4 L 0.7 L Moody # Installation And Repair Technician 0.3 0.4 Eos # Installation And Repair Technician 0.0 0.0 Baso # Installation And Repair Technician 0.0 0.0 Comprehensive Metabolic Panel 03/28/19 03/28/19 03/29/19 Range/Units 16:23 23:17 03:33 Sodium 138 140 141 (137-145) mmol/L Potassium 6.0 H 5.3 H 5.3 H (3.6-5.0) mmol/L Chloride 105.0 106.5 108.0 H (98-107) mmol/L Carbon Dioxide 7 L* 17 L D 19 L (22-30) mmol/L BUN 38 H 45 H 47 H (7-17) mg/dL Creatinine 1.9 H 2.0 H 2.1 H (0.7-1.2) mg/dL Glucose 218 H 251 H 173 H (65-100) mg/dL Calcium 9.1 9.1 9.1 (8.4-10.2) mg/dL AST 124 H (5-40) units/L ALT 48 (7-56) units/L Alkaline Phosphatase 126 (35-129) units/L Total Protein 7.0 (6.3-8.2) g/dL Albumin 4.2 (3.9-5) g/dL
[2019-03-29] MEDS: ASPIRIN EC 325 MG TAB PO SCH (18:21)
[2019-03-29] MEDS ORDERED: METOPROLOL TARTRATE 25 MG TAB PO SCH ×2 (22:00)
[2019-03-30] MEDS: ONDANSETRON 4 MG/2 ML INJ IV PRN (01:49)
[2019-03-30] MEDS: BENZONATATE 100 MG CAP PO SCH ×4 (01:54→17:32)
[2019-03-30 02:08] LABS: INR 1.38 (0.87-1.13)
[2019-03-30] MEDS ORDERED: BENZONATATE 100 MG CAP PO SCH (06:00)
[2019-03-30] MEDS: FUROSEMIDE 40 MG/4 ML INJ IV SCH ×2 (06:21→17:32)
--- NOTE | 2019-03-30 07:03 | Ultrasound Report ---
US renal BILAT INDICATION / CLINICAL INFORMATION: Acute renal failure.. COMPARISON: None available. FINDINGS: Kidneys are normal in size, shape and position, considering the patient's age. Small renal cysts bila terally. Cortical thickness of each kidney is within normal limits. Neither kidney is hydronephrotic. Urinary bladder is negative. IMPRESSION: 1. No acute abnormality. Signer Name: Siva Antonio MD Signed: 03/30/2019 6:58 AM Workstation Name: [email or web address]
[2019-03-30] MEDS: INSULIN LISPRO 100 UNIT/ML SUB-Q SCH ×4 (07:30→21:12)
--- NOTE | 2019-03-30 07:36 | Progress Note ---
Assessment and Plan 1. Acute kidney injury: Vasomotor VINEET in the setting of Acute CHF. Baseline renal function is unknown. Renal US negative. Urine studies pending. Monitor renal function. Renal prognosis is guarded. Avoid nephrotoxic agents. Meds dosage based on GFR. 2. FEN: Anion-gap metabolic acidosis, monitor. Hyperkalemia, improved. Monitor lytes. 3. Decompensated CHF: Followed by Cards. Diuretics. 4. NSTEMI. 5. Normochromic anemia: POA. 6. Suspected pneumonia: Continue antibiotics 7. DM type 2. 8. HTN. Examination: General appearance: well-developed, well-nourished, appears stated age, obese, no distress HEENT: ATNC, RITCHIE, hearing intact, vision intact Neck: neck supple, trachea midline Respiratory: Rales Heart: regular, S1S2, no murmurs Gastrointestinal: soft, normoactive bowel sounds, not tender Integumentary: no rash, warm and dry Neurologic: no focal deficit, no asterixis Ext: no edema Subjective Date of service: 03/30/19 Principal diagnosis: HF Interval history: Patient was seen and examined at the bedside. Doing ok. Objective - Vital Signs Vital signs: Vital Signs - 12hr 03/29/19 03/29/19 03/29/19 20:05 21:57 22:59 Temperature 98.6 F 98.3 F Pulse Rate 102 H 102 H 86 Respiratory 18 18 Rate Blood Pressure 153/75 133/85 Blood Pressure 153/75 [Left] O2 Sat by Pulse 97 98 Oximetry 03/29/19 03/30/19 23:34 04:40 Temperature 98.1 F Pulse Rate 86 85 Respiratory 18 Rate Blood Pressure 155/75 Blood Pressure [Left] O2 Sat by Pulse 99 Oximetry - Lab 03/30/19 07:02 03/30/19 07:02 Most recent lab results Calcium 9.1 mg/dL (8.4-10.2) 03/29/19 03:33 Medications & Allergies - Medications Allergies/Adverse Reactions: Allergies codeine Adverse Reaction (Verified 03/28/19 17:31) Anaphylaxis Penicillins Adverse Reaction (Verified 03/28/19 17:31) Anaphylaxis Active Medications: Generic Name Dose Route Start Last Admin Trade Name Freq PRN Reason Stop Dose Admin Aspirin 325 mg 03/29/19 10:00 03/29/19 18:21 Ecotrin PO Not Given QDAY SUDHIR Benzonatate 100 mg 03/30/19 02:00 03/30/19 06:21 Tessalon Perles PO 100 mg Q6HR SUDHIR Administration Dextrose 0 ml 03/28/19 23:02 D50w (25gm) Syringe IV Q30MIN PRN Hypoglycemia Protocol Furosemide 40 mg 03/29/19 06:00 03/30/19 06:21 Lasix IV 40 mg BID@0600,1800 SUDHIR Administration Hydralazine HCl 10 mg 03/28/19 22:35 Apresoline IV Q6H PRN FOR SBP > target Heparin Sodium/Sodium Chloride 25,000 unit in 500 mls @ 20 mls/hr 03/28/19 20:00 03/29/19 19:14 Heparin/ 0.45% Nacl-25,000 Unit/500 Ml IV 900 units/hr TITRATE SUDHIR 18 mls/hr Titration Protocol 1,000 UNITS/HR Levofloxacin/Dextrose 750 mg in 150 mls @ 100 mls/hr 03/29/19 10:00 03/29/19 10:26 Levaquin 750mg/150ml IV 100 mls/hr Q48HR SUDHIR Administration Protocol Insulin Human Lispro 0 unit 03/29/19 07:30 03/29/19 22:40 Humalog SUB-Q Not Given ACHS [facility] Protocol Metoprolol Tartrate 25 mg 03/29/19 22:00 03/29/19 21:57 Metoprolol PO 25 mg BID SUDHIR Administration Nitroglycerin 0.4 mg 03/28/19 22:35 Nitrostat SL .Q5MIN PRN Chest Pain Ondansetron HCl 4 mg 03/30/19 01:37 03/30/19 01:49 Zofran IV 4 mg Q8H PRN Administration Nausea And Vomiting Sodium Chloride 10 ml 03/28/19 22:35 03/30/19 01:52 Sodium Chloride Flush Syringe 10 Ml IV 10 ml PRN PRN Administration LINE FLUSH
[2019-03-30 07:45] LABS: Hematocrit 27.5 % (30.3-42.9); Hemoglobin 8.6 gm/dl (10.1-14.3)
[2019-03-30 08:10] LABS: Calcium 8.7 mg/dL (8.4-10.2)
--- NOTE | 2019-03-30 09:18 | Progress Note ---
Assessment and Plan Patient alert, awake. Sitting by the side of the bed. On litres o2. O2 saturation 95%. Complaining some cough. No acute respiratory distress. - Patient Problems (1) Pleural effusion Current Visit: Yes Status: Acute Plan to address problem: Appears right pleural effusion. Obtaining Ultrasound of chest. (2) Acute heart failure Current Visit: Yes Status: Acute Plan to address problem: Management as per cardiology. (3) Acute on chronic renal failure Current Visit: Yes Status: Acute Plan to address problem: Management as per nephrology. (4) HTN (hypertension) Current Visit: Yes Status: Acute Plan to address problem: Management as per primary care. Subjective Date of service: 03/30/19 Principal diagnosis: HF Interval history: Patient alert, awake. Sitting by the side of the bed. On litres o2. O2 saturation 95%. Complaining some cough. No acute respiratory distress. Objective Vital Signs - 12hr 03/29/19 03/29/19 03/29/19 21:57 22:59 23:34 Temperature 98.3 F Pulse Rate 102 H 86 86 Respiratory 18 Rate Blood Pressure 153/75 133/85 O2 Sat by Pulse 98 Oximetry 03/30/19 04:40 Temperature 98.1 F Pulse Rate 85 Respiratory 18 Rate Blood Pressure 155/75 O2 Sat by Pulse 99 Oximetry Constitutional: no acute distress, alert Eyes: non-icteric ENT: oropharynx moist Neck: supple, no lymphadenopathy Ascultation: Bilateral: rales Cardiovascular: regular rate and rhythm Gastrointestinal: hypoactive bowel sounds, soft, non-tender Integumentary: normal Extremities: no cyanosis, no edema Neurologic: non-focal exam, pupils equal and round, CN II-XII normal Psychiatric: depressed CBC and BMP: 03/30/19 07:02 03/30/19 07:02 ABG, PT/INR, D-dimer: PT/INR, D-dimer PT 17.2 Sec. (12.2-14.9) H 03/30/19 01:06 INR 1.38 (0.87-1.13) H 03/30/19 01:06 D-Dimer 1679.54 ng/mlDDU (0-234) H 03/28/19 17:48 Abnormal lab findings: Abnormal Labs 03/28/19 03/28/19 03/28/19 16:23 16:23 16:23 RBC 3.51 L Hgb 9.6 L Hct MCV 98 H MCH 27 L MCHC 28 L RDW 17.2 H Lymph % (Auto) Lymph # Seg Neutrophils % PT 18.8 H INR 1.55 H D-Dimer Heparin Anti-Xa Level Potassium 6.0 H Chloride Carbon Dioxide 7 L* BUN 38 H Creatinine 1.9 H Glucose 218 H POC Glucose AST 124 H CK-MB (CK-2) 6.2 H CK-MB (CK-2) Rel Index 6.5 H Troponin T 0.479 H* NT-Pro-B Natriuret Pep > 32930 H Triglycerides 156 H PTH Intact 03/28/19 03/28/19 03/28/19 17:48 19:09 23:17 RBC 2.92 L Hgb 8.2 L Hct 25.8 L D MCV MCH MCHC RDW 16.0 H Lymph % (Auto) 5.9 L Lymph # 0.4 L Seg Neutrophils % 89.4 H PT INR D-Dimer 1679.54 H Heparin Anti-Xa Level Potassium Chloride Carbon Dioxide BUN Creatinine Glucose POC Glucose AST CK-MB (CK-2) CK-MB (CK-2) Rel Index Troponin T 0.432 H* NT-Pro-B Natriuret Pep Triglycerides PTH Intact 03/28/19 03/29/19 03/29/19 23:17 00:49 03:33 RBC 3.01 L Hgb 8.1 L Hct 26.3 L MCV MCH 27 L MCHC RDW 16.3 H Lymph % (Auto) 10.1 L Lymph # 0.7 L Seg Neutrophils % 83.9 H PT INR D-Dimer Heparin Anti-Xa Level Potassium 5.3 H Chloride Carbon Dioxide 17 L D BUN 45 H Creatinine 2.0 H Glucose 251 H POC Glucose AST CK-MB (CK-2) CK-MB (CK-2) Rel Index Troponin T 0.599 H* D NT-Pro-B Natriuret Pep Triglycerides PTH Intact 03/29/19 03/29/19 03/29/19 03:33 04:38 07:35 RBC Hgb Hct MCV MCH MCHC RDW Lymph % (Auto) Lymph # Seg Neutrophils % PT INR D-Dimer Heparin Anti-Xa Level 0.79 H Potassium 5.3 H Chloride 108.0 H Carbon Dioxide 19 L BUN 47 H Creatinine 2.1 H Glucose 173 H POC Glucose AST CK-MB (CK-2) CK-MB (CK-2) Rel Index Troponin T 0.678 H* NT-Pro-B Natriuret Pep Triglycerides PTH Intact 03/29/19 03/29/19 03/29/19 07:42 12:03 13:20 RBC Hgb Hct MCV MCH MCHC RDW Lymph % (Auto) Lymph # Seg Neutrophils % PT 18.6 H INR 1.53 H D-Dimer Heparin Anti-Xa Level Potassium Chloride Carbon Dioxide BUN Creatinine Glucose POC Glucose 139 H 165 H AST CK-MB (CK-2) CK-MB (CK-2) Rel Index Troponin T NT-Pro-B Natriuret Pep Triglycerides PTH Intact 03/29/19 03/29/19 03/29/19 13:57 20:19 21:15 RBC Hgb Hct MCV MCH MCHC RDW Lymph % (Auto) Lymph # Seg Neutrophils % PT INR D-Dimer Heparin Anti-Xa Level Potassium Chloride Carbon Dioxide BUN Creatinine Glucose POC Glucose 133 H 166 H 156 H AST CK-MB (CK-2) CK-MB (CK-2) Rel Index Troponin T NT-Pro-B Natriuret Pep Triglycerides PTH Intact 03/30/19 03/30/19 03/30/19 00:06 01:06 07:02 RBC Hgb 8.6 L Hct 27.5 L MCV MCH MCHC RDW Lymph % (Auto) Lymph # Seg Neutrophils % PT 17.2 H INR 1.38 H D-Dimer Heparin Anti-Xa Level 0.22 L Potassium Chloride Carbon Dioxide BUN Creatinine Glucose POC Glucose 129 H AST CK-MB (CK-2) CK-MB (CK-2) Rel Index Troponin T NT-Pro-B Natriuret Pep Triglycerides PTH Intact 03/30/19 03/30/19 03/30/19 07:02 07:02 07:51 RBC Hgb Hct MCV MCH MCHC RDW Lymph % (Auto) Lymph # Seg Neutrophils % PT INR D-Dimer Heparin Anti-Xa Level Potassium Chloride 107.3 H Carbon Dioxide 16 L BUN 53 H Creatinine 2.1 H Glucose 133 H POC Glucose 139 H AST CK-MB (CK-2) CK-MB (CK-2) Rel Index Troponin T 0.688 H* NT-Pro-B Natriuret Pep Triglycerides PTH Intact 74.02 H Chest x-ray: report reviewed, image reviewed Additional Studies: CAT scan of chest: 03/28/19 IMPRESSION: 1. Fullness in the right hilar region. This could be seen in the setting of right hilar adenopathy but is nonspecific. CT with contrast would be useful to better characterize this. 2. There is mild pleural parenchymal disease in the right lower hemithorax. This could be due to effusion and infiltrate/atelectasis. V/Q scan 03/28/19 Reported low probability for pulmonary emboli.
--- NOTE | 2019-03-30 11:39 | Progress Note ---
Assessment and Plan Echo reviewed - EF 20-25%, LA severely dilated, mild MR, mild TR, impaired relaxation, RV mildly dilated, small pericardial effusion, mod pleural effusion. Optimize BPs - convert lopressor to coreg in setting of newly diagnosed CMP. No ACEI/ARB at this time in setting of renal insufficiency. Continue diuresis as tolerated - nephrology following. Pt is pending thoracentesis. Plan for lexiscan MPI stress test in AM pending pt is able to lie flat. NPO after MN. The patient has been seen in conjunction with Dr. Hernandez who agrees with the assessment and plan of care. - Patient Problems (1) Acute HFrEF (heart failure with reduced ejection fraction) Current Visit: Yes Status: Acute (2) Cardiomyopathy Current Visit: Yes Status: Chronic (3) Acute on chronic renal failure Current Visit: Yes Status: Acute (4) Hyperkalemia Current Visit: Yes Status: Acute (5) NSTEMI (non-ST elevated myocardial infarction) Current Visit: Yes Status: Acute Plan to address problem: suspect type II (6) HTN (hypertension) Current Visit: Yes Status: Acute Subjective Date of service: 03/30/19 Principal diagnosis: HF Interval history: pt resting in bed, still with c/o sob. at bedside. pending t horacentesis. Objective Last Vital Signs Temp 98.0 F 03/30/19 08:32 Pulse 87 03/30/19 08:32 Resp 18 03/30/19 08:32 BP 140/57 03/30/19 08:32 Pulse Ox 95 03/30/19 08:32 - Physical Examination General: No Apparent Distress HEENT: Positive: PERRL Neck: Positive: neck supple, trachea midline Cardiac: Positive: Reg Rate and Rhythm, S1/S2 Lungs: Positive: Decreased Breath Sounds Neuro: Positive: Grossly Intact Abdomen: Positive: Unremarkable Skin: Negative: Rash Extremities: Present: +2 Edema - Labs and Meds Coagulation 03/29/19 03/30/19 Range/Units 13:20 01:06 PT 18.6 H 17.2 H (12.2-14.9) Sec. INR 1.53 H 1.38 H (0.87-1.13) CBC 03/30/19 Range/Units 07:02 Hgb 8.6 L (10.1-14.3) gm/dl Hct 27.5 L (30.3-42.9) % Plt Count 221 (140-440) K/mm3 Comprehensive Metabolic Panel 03/30/19 Range/Units 07:02 Sodium 142 (137-145) mmol/L Potassium 5.0 (3.6-5.0) mmol/L Chloride 107.3 H (98-107) mmol/L Carbon Dioxide 16 L (22-30) mmol/L BUN 53 H (7-17) mg/dL Creatinine 2.1 H (0.7-1.2) mg/dL Glucose 133 H (65-100) mg/dL Calcium 8.7 (8.4-10.2) mg/dL
[2019-03-30] MEDS: carvediloL 6.25 MG TAB PO SCH ×2 (14:27→21:09)
[2019-03-30] MEDS: HEPARIN/ 0.45% NACL DRIP 25,000 UNIT/500 ML BAG IV SCH ×3 (14:29→23:18)
--- NOTE | 2019-03-30 16:25 | Progress Note ---
Assessment and Plan Acute hypoxic respiratory failure - likely from CHF exacerbation on pleural effusion - cont diuretics, thoracentesis ordered - wean off from Bipap, pulmonary consult Acute kidney injury: Vasomotor VINEET in the setting of Acute CHF. Baseline renal function is unknown. Renal US and urine studies ordered. Monitor renal function. Avoid nephrotoxic agents. nephrology consulted Acute CHF, likely systolic Followed by Cards. cont Diuretics.monitor ons/os follow 2d echo NSTEMI likely type 2 - ischemic work up per cardiology - cont aspirin and statin - on heparin drip For Lexiscan in AM if patient tolerates procedure and no orthopnea NPO from midnight Hyperkalemia from declining renal function, kayexalate ordered, follow bmp Normochromic anemia: monitor h/h, likely from CD Suspected pneumonia: Continue antibiotics DM type 2 consistent carb diet, SSI HTN - hydralazine iv as needed - monitor BP, adjust BP meds as needed Dvt Px, heparin drip, will be hold after midnight for thoracentesis Subjective Date of service: 03/30/19 Principal diagnosis: HF Interval history: The patient is a 73 YO female with history significant for DM-2 and HTN who presented to [facility] ED with complaint of cough and feeling unwell. Patient states that she having non-productive coughing for the past week and associated with rhinorrhea. Patient had exhibited increased work of breathing and subsequently family brought patient to the ED for evaluation. Of note the patient recently drove from [place] to [place]. Labs significant for Creat 1.9, K 6 and bicarb 7. Objective - Constitutional Vitals: Vital Signs - 12hr 03/30/19 03/30/19 03/30/19 04:40 05:00 08:32 Temperature 98.1 F 98 F 98.0 F Pulse Rate 85 82 87 Respiratory 18 16 18 Rate Blood Pressure 155/75 140/57 Blood Pressure 145/63 [Left] O2 Sat by Pulse 99 97 95 Oximetry General appearance: Present: no acute distress, mild distress, well-nourished - EENT Eyes: PERRL, EOM intact ENT: hearing intact, clear oral mucosa Ears: bilateral: normal - Neck Neck: supple, normal ROM - Respiratory Respiratory effort: normal Respiratory: bilateral: CTA - Breasts Breasts: normal - Cardiovascular Heart rate: 88 Rhythm: regular Heart Sounds: Present: S1 & S2. Absent: gallop, rub Extremities: no ischemia, pulses intact, No edema, normal color, Full ROM - Gastrointestinal General gastrointestinal: Present: soft, non-tender, non-distended, normal bowel sounds Rectal Exam: deferred - Genitourinary Female genitourinary: normal - Integumentary Integumentary: clear, warm, dry - Musculoskeletal Musculoskeletal: 1, strength equal bilaterally - Neurologic Neurologic: moves all extremities - Psychiatric Psychiatric: memory intact, appropriate mood/affect, intact judgment & insight - Allied health notes Allied health notes reviewed: nursing, case management - Labs CBC & Chem 7: 03/30/19 07:02 03/30/19 07:02 Labs: Abnormal lab results 03/29/19 03/29/19 03/30/19 Range/Units 20:19 21:15 00:06 Hgb (10.1-14.3) gm/dl Hct (30.3-42.9) % PT (12.2-14.9) Sec. INR (0.87-1.13) Heparin Anti-Xa Level (0.3-0.7) U.I./ml Chloride (98-107) mmol/L Carbon Dioxide (22-30) mmol/L BUN (7-17) mg/dL Creatinine (0.7-1.2) mg/dL Glucose (65-100) mg/dL POC Glucose 166 H 156 H 129 H (70-105) Troponin T (0.00-0.029) ng/mL PTH Intact (15-65) pg/mL 03/30/19 03/30/19 03/30/19 Range/Units 01:06 07:02 07:02 Hgb 8.6 L (10.1-14.3) gm/dl Hct 27.5 L (30.3-42.9) % PT 17.2 H (12.2-14.9) Sec. INR 1.38 H (0.87-1.13) Heparin Anti-Xa Level 0.22 L (0.3-0.7) U.I./ml Chloride 107.3 H (98-107) mmol/L Carbon Dioxide 16 L (22-30) mmol/L BUN 53 H (7-17) mg/dL Creatinine 2.1 H (0.7-1.2) mg/dL Glucose 133 H (65-100) mg/dL POC Glucose (70-105) Troponin T 0.688 H* (0.00-0.029) ng/mL PTH Intact (15-65) pg/mL 03/30/19 03/30/19 03/30/19 Range/Units 07:02 07:51 11:46 Hgb (10.1-14.3) gm/dl Hct (30.3-42.9) % PT (12.2-14.9) Sec. INR (0.87-1.13) Heparin Anti-Xa Level (0.3-0.7) U.I./ml Chloride (98-107) mmol/L Carbon Dioxide (22-30) mmol/L BUN (7-17) mg/dL Creatinine (0.7-1.2) mg/dL Glucose (65-100) mg/dL POC Glucose 139 H 122 H (70-105) Troponin T (0.00-0.029) ng/mL PTH Intact 74.02 H (15-65) pg/mL 03/30/19 Range/Units 16:02 Hgb (10.1-14.3) gm/dl Hct (30.3-42.9) % PT (12.2-14.9) Sec. INR (0.87-1.13) Heparin Anti-Xa Level (0.3-0.7) U.I./ml Chloride (98-107) mmol/L Carbon Dioxide (22-30) mmol/L BUN (7-17) mg/dL Creatinine (0.7-1.2) mg/dL Glucose (65-100) mg/dL POC Glucose 267 H (70-105) Troponin T (0.00-0.029) ng/mL PTH Intact (15-65) pg/mL - Imaging and cardiology EKG: report reviewed
[2019-03-30] MEDS: ASPIRIN EC 325 MG TAB PO SCH (17:31)
[2019-03-31] MEDS: BENZONATATE 100 MG CAP PO SCH ×5 (00:45→23:43)
[2019-03-31] MEDS: FUROSEMIDE 40 MG/4 ML INJ IV SCH ×2 (05:36→18:03)
[2019-03-31] MEDS: INSULIN LISPRO 100 UNIT/ML SUB-Q SCH ×4 (09:04→22:32)
[2019-03-31] MEDS: ASPIRIN EC 325 MG TAB PO SCH (09:26)
[2019-03-31] MEDS: carvediloL 6.25 MG TAB PO SCH ×2 (09:26→22:32)
[2019-03-31 09:28] LABS: Calcium 8.1 mg/dL (8.4-10.2)
[2019-03-31 10:11] LABS: Creatinine,Urine 69.2 mg/dL (0.1-20.0)
[2019-03-31 10:13] LABS: Bilirubin,Urine NEG (Negative); Blood,Urine NEG (Negative); Color,Urine Yellow (Yellow); Hyaline Casts,Urine 9 /LPF; Protein,Urine <15 mg/dL mg/dL (Negative); Urobilinogen,Urine < 2.0 mg/dL (<2.0); WBC,Urine < 1.0 /HPF (0.0-6.0)
--- NOTE | 2019-03-31 13:40 | Progress Note ---
Assessment and Plan 1. Acute kidney injury: Vasomotor VINEET in the setting of Acute CHF. Baseline renal function is unknown. Renal US negative. Urine studies pending. Creatinine level is stable. suspect CKD stage 4. Monitor renal function. Renal prognosis is guarded. Avoid nephrotoxic agents. Meds dosage based on GFR. 2. FEN: Anion-gap metabolic acidosis, monitor. Hyperkalemia, improved. Monitor lytes. 3. Decompensated CHF: Followed by Cards. Diuretics. 4. NSTEMI. 5. Normochromic anemia: POA. 6. Suspected pneumonia: Continue antibiotics 7. DM type 2. 8. HTN. Examination: General appearance: well-developed, well-nourished, appears stated age, obese, no distress HEENT: ATNC, RITCHIE, hearing intact Neck: neck supple, trachea midline Respiratory: faint bibasal rales Heart: regular, S1S2, no murmur Gastrointestinal: soft, normoactive bowel sounds, not tender Integumentary: no rash, warm and dry Neurologic: able to move extremities Ext: no edema Subjective Date of service: 03/31/19 Principal diagnosis: HF Interval history: Patient was seen and examined at the bedside. Doing ok. Objective - Vital Signs Vital signs: Vital Signs - 12hr 03/31/19 03/31/19 03/31/19 04:06 08:07 08:56 Temperature 98.2 F 98.2 F Pulse Rate 73 76 83 Respiratory 18 18 Rate Blood Pressure 110/44 142/79 O2 Sat by Pulse 94 96 Oximetry 03/31/19 12:35 Temperature 97.9 F Pulse Rate 76 Respiratory 18 Rate Blood Pressure 140/73 O2 Sat by Pulse 99 Oximetry - Lab 03/30/19 07:02 03/31/19 06:40 Most recent lab results Calcium 8.1 mg/dL (8.4-10.2) L 03/31/19 06:40 Phosphorus 3.70 mg/dL (2.5-4.5) 03/30/19 07:02 Urine Creatinine 69.2 mg/dL (0.1-20.0) H 03/31/19 07:45 Urine Sodium 69 mmol/L 03/31/19 07:45 Medications & Allergies - Medications Allergies/Adverse Reactions: Allergies codeine Adverse Reaction (Verified 03/28/19 17:31) Anaphylaxis Penicillins Adverse Reaction (Verified 03/28/19 17:31) Anaphylaxis Active Medications: Generic Name Dose Route Start Last Admin Trade Name Freq PRN Reason Stop Dose Admin Aspirin 325 mg 03/29/19 10:00 03/31/19 09:26 Ecotrin PO 325 mg QDAY SUDHIR Administration Benzonatate 100 mg 03/30/19 02:00 03/31/19 05:36 Tessalon Perles PO 100 mg Q6HR SUDHIR Administration Carvedilol 6.25 mg 03/30/19 10:00 03/31/19 09:26 Coreg PO 6.25 mg BID SUDHIR Administration Dextrose 0 ml 03/28/19 23:02 D50w (25gm) Syringe IV Q30MIN PRN Hypoglycemia Protocol Furosemide 40 mg 03/29/19 06:00 03/31/19 05:36 Lasix IV 40 mg BID@0600,1800 SUDHIR Administration Hydralazine HCl 10 mg 03/28/19 22:35 Apresoline IV Q6H PRN FOR SBP > target Heparin Sodium/Sodium Chloride 25,000 unit in 500 mls @ 20 mls/hr 03/28/19 20:00 03/31/19 00:56 Heparin/ 0.45% Nacl-25,000 Unit/500 Ml IV 1,100 units/hr TITRATE SUDHIR 22 mls/hr Titration Protocol 1,000 UNITS/HR Levofloxacin/Dextrose 750 mg in 150 mls @ 100 mls/hr 03/29/19 10:00 03/31/19 09:26 Levaquin 750mg/150ml IV 100 mls/hr Q48HR SUDHIR Administration Protocol Insulin Human Lispro 0 unit 03/29/19 07:30 03/31/19 09:04 Humalog SUB-Q Not Given ACHS REPLACED BY [facility] Protocol Nitroglycerin 0.4 mg 03/28/19 22:35 Nitrostat SL .Q5MIN PRN Chest Pain Ondansetron HCl 4 mg 03/30/19 01:37 03/30/19 01:49 Zofran IV 4 mg Q8H PRN Administration Nausea And Vomiting Sodium Chloride 10 ml 03/28/19 22:35 03/30/19 01:52 Sodium Chloride Flush Syringe 10 Ml IV 10 ml PRN PRN Administration LINE FLUSH
--- NOTE | 2019-03-31 14:07 | Progress Note ---
Assessment and Plan 73 yo female,who is on medication for a while,ran out of meds recently,feeling week,increasing leg swelling of few weeks along with coughing,nausea,SOB,no significant chest pain.Presently symptoms and signs suggestive of chf,with underlying ?UR,labs showing anemia,elevated creatinine.Agree with lasix,will get more information from family when available.Reevaluate in AM.Also elevated troponins,will get serial troponins and echo. 03/31/2019>Patient is slowly improving,awaiting iv Lexiscan MPI. Subjective Date of service: 03/31/19 Principal diagnosis: HF Interval history: Patient is still coughing,dry. Objective Vital Signs Temp Pulse Resp BP BP Pulse Ox 03/31/19 12:35 97.9 F 76 18 140/73 99 03/31/19 08:56 83 03/31/19 08:07 98.2 F 76 18 142/79 96 03/31/19 04:06 98.2 F 73 18 110/44 94 03/30/19 23:01 98.2 F 74 18 105/47 94 03/30/19 22:00 76 03/30/19 21:09 77 129/61 03/30/19 19:56 98.2 F 77 18 112/55 96 - Physical Examination General: No Apparent Distress HEENT: Positive: PERRL Neck: Positive: neck supple, trachea midline Cardiac: Positive: Reg Rate and Rhythm, S4 Lungs: Positive: Decreased Breath Sounds, Wheezes Neuro: Positive: Grossly Intact Abdomen: Positive: Unremarkable Skin: Negative: Rash Extremities: Present: +1 Edema, +2 Edema - Labs and Meds Comprehensive Metabolic Panel 03/31/19 Range/Units 06:40 Sodium 140 (137-145) mmol/L Potassium 4.6 (3.6-5.0) mmol/L Chloride 106.1 (98-107) mmol/L Carbon Dioxide 18 L (22-30) mmol/L BUN 57 H (7-17) mg/dL Creatinine 2.2 H (0.7-1.2) mg/dL Glucose 133 H (65-100) mg/dL Calcium 8.1 L (8.4-10.2) mg/dL - Imaging and Cardiology EKG: report reviewed
--- NOTE | 2019-03-31 14:11 | Progress Note ---
Assessment and Plan Acute hypoxic respiratory failure - likely from CHF exacerbation on pleural effusion - cont diuretics, thoracentesis ordered - Decrease lasix b/c of worsening renal function Acute kidney injury: Vasomotor VINEET in the setting of Acute CHF. Worsening renal kzsashcz01/1.9 to 57/2.2 Will decrease lasix Acute CHF, likely systolic Followed by Cards. cont Diuretics.monitor ons/os 2d echo NSTEMI likely type 2 - ischemic work up per cardiology - cont aspirin and statin - on heparin drip For Lexiscan in AM if patient tolerates procedure and no orthopnea NPO from midnight Hyperkalemia from declining renal function, kayexalate ordered, follow bmp Normochromic anemia: monitor h/h, likely from CD Suspected pneumonia: Continue antibiotics DM type 2 consistent carb diet, SSI HTN - hydralazine iv as needed - monitor BP, adjust BP meds as needed Dvt Px, heparin drip, will be hold after midnight for thoracentesis Subjective Date of service: 03/31/19 Principal diagnosis: HF Interval history: The patient is a 73 YO female with history significant for DM-2 and HTN who presented to [facility] ED with complaint of cough and feeling unwell. Patient states that she having non-productive coughing for the past week and associated with rhinorrhea. Patient had exhibited increased work of breathing and subsequently family brought patient to the ED for evaluation. Of note the patient recently drove from [place] to [place]. Labs significant for Creat 1.9, K 6 and bicarb 7. Objective - Constitutional Vitals: Vital Signs - 12hr 03/31/19 03/31/19 03/31/19 04:06 08:07 08:56 Temperature 98.2 F 98.2 F Pulse Rate 73 76 83 Respiratory 18 18 Rate Blood Pressure 110/44 142/79 O2 Sat by Pulse 94 96 Oximetry 03/31/19 12:35 Temperature 97.9 F Pulse Rate 76 Respiratory 18 Rate Blood Pressure 140/73 O2 Sat by Pulse 99 Oximetry General appearance: Present: no acute distress, well-nourished - EENT Eyes: PERRL, EOM intact ENT: hearing intact, clear oral mucosa Ears: bilateral: normal - Neck Neck: supple, normal ROM - Respiratory Respiratory effort: normal Respiratory: bilateral: CTA - Breasts Breasts: normal - Cardiovascular Heart rate: 78 Rhythm: regular Heart Sounds: Present: S1 & S2. Absent: gallop, rub Extremities: pulses intact, No edema, normal color, Full ROM - Gastrointestinal General gastrointestinal: Present: soft, non-tender, non-distended, normal bowel sounds - Genitourinary Female genitourinary: normal - Integumentary Integumentary: clear, warm, dry - Musculoskeletal Musculoskeletal: 1, strength equal bilaterally - Neurologic Neurologic: moves all extremities - Psychiatric Psychiatric: memory intact, appropriate mood/affect, intact judgment & insight - Allied health notes Allied health notes reviewed: nursing, case management - Labs CBC & Chem 7: 03/30/19 07:02 03/31/19 06:40 Labs: Abnormal lab results 03/30/19 03/30/19 03/30/19 Range/Units 16:02 21:02 23:04 Heparin Anti-Xa Level 0.26 L (0.3-0.7) U.I./ml Carbon Dioxide (22-30) mmol/L BUN (7-17) mg/dL Creatinine (0.7-1.2) mg/dL Glucose (65-100) mg/dL POC Glucose 267 H 121 H (70-105) Calcium (8.4-10.2) mg/dL Urine Creatinine (0.1-20.0) mg/dL 03/31/19 03/31/19 03/31/19 Range/Units 06:40 06:40 07:45 Heparin Anti-Xa Level < 0.10 L (0.3-0.7) U.I./ml Carbon Dioxide 18 L (22-30) mmol/L BUN 57 H (7-17) mg/dL Creatinine 2.2 H (0.7-1.2) mg/dL Glucose 133 H (65-100) mg/dL POC Glucose (70-105) Calcium 8.1 L (8.4-10.2) mg/dL Urine Creatinine 69.2 H (0.1-20.0) mg/dL 03/31/19 03/31/19 Range/Units 08:15 11:20 Heparin Anti-Xa Level (0.3-0.7) U.I./ml Carbon Dioxide (22-30) mmol/L BUN (7-17) mg/dL Creatinine (0.7-1.2) mg/dL Glucose (65-100) mg/dL POC Glucose 138 H 312 H (70-105) Calcium (8.4-10.2) mg/dL Urine Creatinine (0.1-20.0) mg/dL
--- NOTE | 2019-03-31 16:47 | Progress Note ---
Assessment and Plan atient alert, awake. Sitting by the side of the bed. Patient is on room air. O2 saturation 97%.No complaint of chest pain or shortness of breath. Complaining some cough. No acute respiratory distress.. - Patient Problems (1) Pleural effusion Current Visit: Yes Status: Acute Plan to address problem: Appears right pleural effusion. Ordered Right thoracentesis under ultrasound guidance. (2) Acute heart failure Current Visit: Yes Status: Acute Plan to address problem: Management as per cardiology. (3) Acute on chronic renal failure Current Visit: Yes Status: Acute Plan to address problem: Management as per nephrology. (4) HTN (hypertension) Current Visit: Yes Status: Acute Plan to address problem: Management as per primary care. Subjective Date of service: 03/31/19 Principal diagnosis: HF Interval history: Patient alert, awake. Sitting by the side of the bed. Patient is on room air. O2 saturation 97%.No complaint of chest pain or shortness of breath. Complaining some cough. No acute respiratory distress. Objective Vital Signs - 12hr 03/31/19 03/31/19 03/31/19 08:07 08:56 12:35 Temperature 98.2 F 97.9 F Pulse Rate 76 83 76 Respiratory 18 18 Rate Blood Pressure 142/79 140/73 O2 Sat by Pulse 96 99 Oximetry 03/31/19 16:35 Temperature 98.2 F Pulse Rate 74 Respiratory 18 Rate Blood Pressure 122/61 O2 Sat by Pulse 95 Oximetry Constitutional: no acute distress, alert Eyes: non-icteric ENT: oropharynx moist Neck: supple, no lymphadenopathy Ascultation: Bilateral: rales Cardiovascular: regular rate and rhythm Gastrointestinal: hypoactive bowel sounds, soft, non-tender Integumentary: normal Extremities: no cyanosis, no edema Neurologic: non-focal exam, pupils equal and round, CN II-XII normal Psychiatric: depressed CBC and BMP: 03/30/19 07:02 03/31/19 06:40 ABG, PT/INR, D-dimer: PT/INR, D-dimer PT 17.2 Sec. (12.2-14.9) H 03/30/19 01:06 INR 1.38 (0.87-1.13) H 03/30/19 01:06 D-Dimer 1679.54 ng/mlDDU (0-234) H 03/28/19 17:48 Abnormal lab findings: Abnormal Labs 03/28/19 03/28/19 03/28/19 16:23 16:23 16:23 RBC 3.51 L Hgb 9.6 L Hct MCV 98 H MCH 27 L MCHC 28 L RDW 17.2 H Lymph % (Auto) Lymph # Seg Neutrophils % PT 18.8 H INR 1.55 H D-Dimer Heparin Anti-Xa Level Potassium 6.0 H Chloride Carbon Dioxide 7 L* BUN 38 H Creatinine 1.9 H Glucose 218 H POC Glucose Calcium AST 124 H CK-MB (CK-2) 6.2 H CK-MB (CK-2) Rel Index 6.5 H Troponin T 0.479 H* NT-Pro-B Natriuret Pep > 47088 H Triglycerides 156 H PTH Intact Urine Creatinine 03/28/19 03/28/19 03/28/19 17:48 19:09 23:17 RBC 2.92 L Hgb 8.2 L Hct 25.8 L D MCV MCH MCHC RDW 16.0 H Lymph % (Auto) 5.9 L Lymph # 0.4 L Seg Neutrophils % 89.4 H PT INR D-Dimer 1679.54 H Heparin Anti-Xa Level Potassium Chloride Carbon Dioxide BUN Creatinine Glucose POC Glucose Calcium AST CK-MB (CK-2) CK-MB (CK-2) Rel Index Troponin T 0.432 H* NT-Pro-B Natriuret Pep Triglycerides PTH Intact Urine Creatinine 03/28/19 03/29/19 03/29/19 23:17 00:49 03:33 RBC 3.01 L Hgb 8.1 L Hct 26.3 L MCV MCH 27 L MCHC RDW 16.3 H Lymph % (Auto) 10.1 L Lymph # 0.7 L Seg Neutrophils % 83.9 H PT INR D-Dimer Heparin Anti-Xa Level Potassium 5.3 H Chloride Carbon Dioxide 17 L D BUN 45 H Creatinine 2.0 H Glucose 251 H POC Glucose Calcium AST CK-MB (CK-2) CK-MB (CK-2) Rel Index Troponin T 0.599 H* D NT-Pro-B Natriuret Pep Triglycerides PTH Intact Urine Creatinine 03/29/19 03/29/19 03/29/19 03:33 04:38 07:35 RBC Hgb Hct MCV MCH MCHC RDW Lymph % (Auto) Lymph # Seg Neutrophils % PT INR D-Dimer Heparin Anti-Xa Level 0.79 H Potassium 5.3 H Chloride 108.0 H Carbon Dioxide 19 L BUN 47 H Creatinine 2.1 H Glucose 173 H POC Glucose Calcium AST CK-MB (CK-2) CK-MB (CK-2) Rel Index Troponin T 0.678 H* NT-Pro-B Natriuret Pep Triglycerides PTH Intact Urine Creatinine 03/29/19 03/29/19 03/29/19 07:42 12:03 13:20 RBC Hgb Hct MCV MCH MCHC RDW Lymph % (Auto) Lymph # Seg Neutrophils % PT 18.6 H INR 1.53 H D-Dimer Heparin Anti-Xa Level Potassium Chloride Carbon Dioxide BUN Creatinine Glucose POC Glucose 139 H 165 H Calcium AST CK-MB (CK-2) CK-MB (CK-2) Rel Index Troponin T NT-Pro-B Natriuret Pep Triglycerides PTH Intact Urine Creatinine 03/29/19 03/29/19 03/29/19 13:57 20:19 21:15 RBC Hgb Hct MCV MCH MCHC RDW Lymph % (Auto) Lymph # Seg Neutrophils % PT INR D-Dimer Heparin Anti-Xa Level Potassium Chloride Carbon Dioxide BUN Creatinine Glucose POC Glucose 133 H 166 H 156 H Calcium AST CK-MB (CK-2) CK-MB (CK-2) Rel Index Troponin T NT-Pro-B Natriuret Pep Triglycerides PTH Intact Urine Creatinine 03/30/19 03/30/19 03/30/19 00:06 01:06 07:02 RBC Hgb 8.6 L Hct 27.5 L MCV MCH MCHC RDW Lymph % (Auto) Lymph # Seg Neutrophils % PT 17.2 H INR 1.38 H D-Dimer Heparin Anti-Xa Level 0.22 L Potassium Chloride Carbon Dioxide BUN Creatinine Glucose POC Glucose 129 H Calcium AST CK-MB (CK-2) CK-MB (CK-2) Rel Index Troponin T NT-Pro-B Natriuret Pep Triglycerides PTH Intact Urine Creatinine 03/30/19 03/30/19 03/30/19 07:02 07:02 07:51 RBC Hgb Hct MCV MCH MCHC RDW Lymph % (Auto) Lymph # Seg Neutrophils % PT INR D-Dimer Heparin Anti-Xa Level Potassium Chloride 107.3 H Carbon Dioxide 16 L BUN 53 H Creatinine 2.1 H Glucose 133 H POC Glucose 139 H Calcium AST CK-MB (CK-2) CK-MB (CK-2) Rel Index Troponin T 0.688 H* NT-Pro-B Natriuret Pep Triglycerides PTH Intact 74.02 H Urine Creatinine 03/30/19 03/30/19 03/30/19 11:46 16:02 21:02 RBC Hgb Hct MCV MCH MCHC RDW Lymph % (Auto) Lymph # Seg Neutrophils % PT INR D-Dimer Heparin Anti-Xa Level Potassium Chloride Carbon Dioxide BUN Creatinine Glucose POC Glucose 122 H 267 H 121 H Calcium AST CK-MB (CK-2) CK-MB (CK-2) Rel Index Troponin T NT-Pro-B Natriuret Pep Triglycerides PTH Intact Urine Creatinine 03/30/19 03/31/19 03/31/19 23:04 06:40 06:40 RBC Hgb Hct MCV MCH MCHC RDW Lymph % (Auto) Lymph # Seg Neutrophils % PT INR D-Dimer Heparin Anti-Xa Level 0.26 L < 0.10 L Potassium Chloride Carbon Dioxide 18 L BUN 57 H Creatinine 2.2 H Glucose 133 H POC Glucose Calcium 8.1 L AST CK-MB (CK-2) CK-MB (CK-2) Rel Index Troponin T NT-Pro-B Natriuret Pep Triglycerides PTH Intact Urine Creatinine 03/31/19 03/31/19 03/31/19 07:45 08:15 11:20 RBC Hgb Hct MCV MCH MCHC RDW Lymph % (Auto) Lymph # Seg Neutrophils % PT INR D-Dimer Heparin Anti-Xa Level Potassium Chloride Carbon Dioxide BUN Creatinine Glucose POC Glucose 138 H 312 H Calcium AST CK-MB (CK-2) CK-MB (CK-2) Rel Index Troponin T NT-Pro-B Natriuret Pep Triglycerides PTH Intact Urine Creatinine 69.2 H
[2019-03-31] MEDS ORDERED: HEPARIN 10,000 UNITS/10 ML VIAL IV ONE (17:51)
[2019-04-01] MEDS: BENZONATATE 100 MG CAP PO SCH ×4 (06:08→23:36)
[2019-04-01] MEDS: INSULIN LISPRO 100 UNIT/ML SUB-Q SCH ×4 (07:30→23:26)
[2019-04-01] MEDS ORDERED: REGADENOSON 0.4 MG/5 ML INJ IV ONE (07:30)
--- NOTE | 2019-04-01 09:23 | Treadmill Report ---
LEXISCAN STRESS TEST REPORT REASON FOR STUDY: Abnormal cardiac enzymes. STRESS TEST PROTOCOL: The patient received 0.4 mg of Lexiscan intravenously over 10 seconds. Tc-99m Tetrofosmin was subsequently injected. Baseline ECG, normal sinus rhythm. T-wave abnormality. Consider inferior and anterolateral ischemia. Possible septal myocardial infarction of undetermined age. Lexiscan ECG, no significant change from baseline. No chest pain. No arrhythmias. IMPRESSION: Nondiagnostic due to baseline ECG abnormalities. Nuclear imaging report to follow. JOB# [id number] AGO/NTS
--- NOTE | 2019-04-01 09:46 | Progress Note ---
Assessment and Plan 1. Acute kidney injury: Vasomotor VINEET in the setting of Acute CHF. Baseline renal function is unknown. Renal US negative. UA bland. Creatinine level is stable. Suspect CKD stage 4. Monitor renal function. Renal prognosis is guarded. Avoid nephrotoxic agents. Meds dosage based on GFR. 2. FEN: Anion-gap metabolic acidosis, monitor. Hyperkalemia, improved. Monitor lytes. 3. Decompensated CHF: Followed by Cards. Diuretics. 4. NSTEMI. 5. Normochromic anemia: POA. 6. Suspected pneumonia: Continue antibiotics. 7. DM type 2. 8. HTN. Examination: General appearance: well-developed, well-nourished, appears stated age, obese, no distress HEENT: ATNC, RITCHIE, hearing intact Neck: neck supple, trachea midline Respiratory: faint bibasal rales Heart: regular, S1S2, no murmur Gastrointestinal: soft, normoactive bowel sounds, not tender Integumentary: no rash, warm and dry Neurologic: conversing, able to move extremities Ext: no edema Subjective Date of service: 04/01/19 Principal diagnosis: HF Interval history: Patient was seen and examined at the bedside. Doing ok. Objective - Vital Signs Vital signs: Vital Signs - 12hr 03/31/19 03/31/19 03/31/19 22:00 22:32 23:29 Temperature Pulse Rate 80 80 88 Respiratory Rate Blood Pressure 139/68 Blood Pressure [Left] O2 Sat by Pulse 97 Oximetry 04/01/19 04/01/19 04/01/19 00:30 00:45 00:54 Temperature 98.2 F Pulse Rate 79 77 Respiratory 16 Rate Blood Pressure 89/38 Blood Pressure 104/44 [Left] O2 Sat by Pulse 93 98 Oximetry - Lab 04/01/19 07:05 04/01/19 07:05 Most recent lab results Calcium 8.1 mg/dL (8.4-10.2) L 03/31/19 06:40 Phosphorus 3.70 mg/dL (2.5-4.5) 03/30/19 07:02 Urine Creatinine 69.2 mg/dL (0.1-20.0) H 03/31/19 07:45 Urine Sodium 69 mmol/L 03/31/19 07:45 Medications & Allergies - Medications Allergies/Adverse Reactions: Allergies codeine Adverse Reaction (Verified 03/28/19 17:31) Anaphylaxis Penicillins Adverse Reaction (Verified 03/28/19 17:31) Anaphylaxis Active Medications: Generic Name Dose Route Start Last Admin Trade Name Freq PRN Reason Stop Dose Admin Aspirin 325 mg 03/29/19 10:00 03/31/19 09:26 Ecotrin PO 325 mg QDAY SUDHIR Administration Benzonatate 100 mg 03/30/19 02:00 04/01/19 06:08 Tessalon Perles PO 100 mg Q6HR SUDHIR Administration Carvedilol 6.25 mg 03/30/19 10:00 03/31/19 22:32 Coreg PO 6.25 mg BID SUDHIR Administration Dextrose 0 ml 03/28/19 23:02 D50w (25gm) Syringe IV Q30MIN PRN Hypoglycemia Protocol Furosemide 40 mg 03/31/19 15:00 03/31/19 18:03 Lasix IV 40 mg QDAY SUDHIR Administration Hydralazine HCl 10 mg 03/28/19 22:35 Apresoline IV Q6H PRN FOR SBP > target Levofloxacin/Dextrose 750 mg in 150 mls @ 100 mls/hr 03/29/19 10:00 03/31/19 09:26 Levaquin 750mg/150ml IV 100 mls/hr Q48HR SUDHIR Administration Protocol Insulin Human Lispro 0 unit 03/29/19 07:30 03/31/19 22:32 Humalog SUB-Q Not Given ACHS PENDING SALE TO [facility] Protocol Nitroglycerin 0.4 mg 03/28/19 22:35 Nitrostat SL .Q5MIN PRN Chest Pain Ondansetron HCl 4 mg 03/30/19 01:37 03/30/19 01:49 Zofran IV 4 mg Q8H PRN Administration Nausea And Vomiting Sodium Chloride 10 ml 03/28/19 22:35 03/30/19 01:52 Sodium Chloride Flush Syringe 10 Ml IV 10 ml PRN PRN Administration LINE FLUSH
[2019-04-01 09:51] LABS: Hematocrit 25.5 % (30.3-42.9); Hemoglobin 7.8 gm/dl (10.1-14.3)
[2019-04-01 10:18] LABS: Calcium 8.3 mg/dL (8.4-10.2)
--- NOTE | 2019-04-01 12:44 | Progress Note ---
Assessment and Plan S/p lexiscan MPI stress test this AM which was positive for ischemia. However, given currently stable cardiac status, absence of any current cardiac complaints and renal insufficiency, will continue with medical management at this time. Optimize anti-ischemic regimen and if chest pain reoccurs can consider LHC. Cont diuresis and monitor renal indices. No ACEI/ARB at this time in setting of renal insufficiency. The patient has been seen in conjunction with Dr. Hernandez who agrees with the assessment and plan of care. - Patient Problems (1) Acute HFrEF (heart failure with reduced ejection fraction) Current Visit: Yes Status: Acute (2) Pleural effusion Current Visit: Yes Status: Acute (3) Cardiomyopathy Current Visit: Yes Status: Chronic (4) Acute on chronic renal failure Current Visit: Yes Status: Acute (5) Hyperkalemia Current Visit: Yes Status: Acute (6) NSTEMI (non-ST elevated myocardial infarction) Current Visit: Yes Status: Acute (7) HTN (hypertension) Current Visit: Yes Status: Acute Subjective Date of service: 04/01/19 Principal diagnosis: HF Interval history: pt for stress test, no current complaints. Objective Last Vital Signs Temp 98.5 F 04/01/19 06:03 Pulse 84 04/01/19 06:03 Resp 16 04/01/19 06:03 BP 134/49 04/01/19 09:15 Pulse Ox 91 04/01/19 06:03 - Physical Examination General: No Apparent Distress HEENT: Positive: PERRL Neck: Positive: neck supple, trachea midline Cardiac: Positive: Reg Rate and Rhythm, S1/S2 Lungs: Positive: Decreased Breath Sounds Neuro: Positive: Grossly Intact Abdomen: Positive: Unremarkable Skin: Negative: Rash Extremities: Present: +1 Edema, +2 Edema - Labs and Meds CBC 04/01/19 Range/Units 07:05 Hgb 7.8 L (10.1-14.3) gm/dl Hct 25.5 L (30.3-42.9) % Plt Count 201 (140-440) K/mm3 Comprehensive Metabolic Panel 04/01/19 Range/Units 07:05 Sodium 138 (137-145) mmol/L Potassium 4.4 (3.6-5.0) mmol/L Chloride 102.3 (98-107) mmol/L Carbon Dioxide 19 L (22-30) mmol/L BUN 66 H (7-17) mg/dL Creatinine 2.0 H (0.7-1.2) mg/dL Glucose 147 H (65-100) mg/dL Calcium 8.3 L (8.4-10.2) mg/dL - Imaging and Cardiology EKG: report reviewed Echo: report reviewed (EF 20-25%, LA severely dilated, mild MR, mild TR, impaired relaxation, RV mildly dilated, small pericardial effusion, mod pleural effusion. ) - Telemetry EKG Rhythm: Sinus Rhythm
--- NOTE | 2019-04-01 14:05 | Ultrasound Report ---
ULTRASOUND CHEST HISTORY: Right pleural effusion FINDINGS: This examination was scheduled as an ultrasound guided right thoracentesis. Targeted transa bdominal ultrasound images of the right chest demonstrate a very small right pleural effusion with vo lume estimated at 50 cc. This collection was too small for ultrasound-guided thoracentesis. IMPRESSION: Near complete resolution of the right pleural effusion. Ultrasound thoracentesis was not performed. See above. Signer Name: Alex Molina Jr, MD Signed: 04/01/2019 2:00 PM Workstation Name: [id number]
--- NOTE | 2019-04-01 14:27 | Treadmill Report ---
THALLIUM REPORT REASON FOR STUDY: Elevated cardiac enzymes. IMAGING PROTOCOL: The patient received 10 mCi of technetium Tetrofosmin for rest imaging, and 28 mCi of technetium Tetrofosmin for stress imaging. Imaging for all procedures was completed 30-90 minutes following the initial injection of Technetium 99m Tetrofosmin. SPECT imaging in the 180 degree arc was performed in the right anterior oblique projection. Computerized reconstruction of the images was performed for analysis. NUCLEAR IMAGING RESULTS: Technically limited study due to soft tissue attenuation artifact. Normal left ventricular cavity size with no change from stress to rest. Distribution of radionuclide within the left ventricle revealed a large area of photon reduction involving the apex. The degree of photon reduction is moderate. Rest imaging showed partial improvement (90%) in this defect. There is also a small area of photon reduction involving the anteroseptal wall. The degree of photon reduction is moderate. Rest imaging showed partial improvement in this defect. In addition, there is a large area of photon reduction involving the inferior wall. The degree of photon reduction is moderate. Rest imaging does not show any significant improvement in this defect. There is also a medium size area of photon reduction involving the lateral wall. The degree of photon reduction is moderate. Rest imaging showed partial improvement in this defect. Gated SPECT imaging revealed severe global left ventricular hypokinesis. The calculated left ventricular ejection fraction is 26%. IMPRESSION: Technically limited study. Large, partially reversible apical defect. Small reversible anteroseptal defect. Large fixed inferior defect. Medium size, partially reversible lateral defect. Severe global left ventricular hypokinesis. EF 26%. These findings suggest a small area of prior infarction with significant residual ischemia in the left anterior descending coronary artery territory. There is also suggestion of a small area of prior infarction with moderate residual ischemia in the left circumflex coronary artery territory. In addition, there is suggestion of prior infarction in the right coronary artery territory. JOB# [id number] KENROY/MAKEDA DUTTON
[2019-04-01] MEDS: carvediloL 6.25 MG TAB PO SCH ×2 (17:47→23:23)
[2019-04-01] MEDS: FUROSEMIDE 40 MG/4 ML INJ IV SCH (17:52)
--- NOTE | 2019-04-01 18:26 | Progress Note ---
Subjective Date of service: 04/01/19 Principal diagnosis: HF Objective Vital Signs - 12hr 04/01/19 04/01/19 04/01/19 08:49 09:10 09:11 Temperature Pulse Rate Respiratory Rate Blood Pressure 133/58 138/63 143/64 O2 Sat by Pulse Oximetry 04/01/19 04/01/19 04/01/19 09:12 09:13 09:15 Temperature Pulse Rate Respiratory Rate Blood Pressure 92/71 99/61 134/49 O2 Sat by Pulse Oximetry 04/01/19 04/01/19 13:21 16:18 Temperature 97.9 F 98.1 F Pulse Rate 85 85 Respiratory 18 18 Rate Blood Pressure 140/60 137/70 O2 Sat by Pulse 97 98 Oximetry Constitutional: no acute distress, alert Eyes: non-icteric ENT: oropharynx moist Neck: supple, no lymphadenopathy Ascultation: Bilateral: rales Cardiovascular: regular rate and rhythm Gastrointestinal: hypoactive bowel sounds, soft, non-tender Integumentary: normal Extremities: no cyanosis, no edema Neurologic: non-focal exam, pupils equal and round, CN II-XII normal Psychiatric: depressed CBC and BMP: 04/01/19 07:05 04/01/19 07:05 ABG, PT/INR, D-dimer: PT/INR, D-dimer PT 17.2 Sec. (12.2-14.9) H 03/30/19 01:06 INR 1.38 (0.87-1.13) H 03/30/19 01:06 D-Dimer 1679.54 ng/mlDDU (0-234) H 03/28/19 17:48 Abnormal lab findings: Abnormal Labs 03/28/19 03/28/19 03/28/19 16:23 16:23 16:23 RBC 3.51 L Hgb 9.6 L Hct MCV 98 H MCH 27 L MCHC 28 L RDW 17.2 H Lymph % (Auto) Lymph # Seg Neutrophils % PT 18.8 H INR 1.55 H D-Dimer Heparin Anti-Xa Level Potassium 6.0 H Chloride Carbon Dioxide 7 L* BUN 38 H Creatinine 1.9 H Glucose 218 H POC Glucose Calcium AST 124 H CK-MB (CK-2) 6.2 H CK-MB (CK-2) Rel Index 6.5 H Troponin T 0.479 H* NT-Pro-B Natriuret Pep > 29354 H Triglycerides 156 H PTH Intact Urine Creatinine 03/28/19 03/28/19 03/28/19 17:48 19:09 23:17 RBC 2.92 L Hgb 8.2 L Hct 25.8 L D MCV MCH MCHC RDW 16.0 H Lymph % (Auto) 5.9 L Lymph # 0.4 L Seg Neutrophils % 89.4 H PT INR D-Dimer 1679.54 H Heparin Anti-Xa Level Potassium Chloride Carbon Dioxide BUN Creatinine Glucose POC Glucose Calcium AST CK-MB (CK-2) CK-MB (CK-2) Rel Index Troponin T 0.432 H* NT-Pro-B Natriuret Pep Triglycerides PTH Intact Urine Creatinine 03/28/19 03/29/19 03/29/19 23:17 00:49 03:33 RBC 3.01 L Hgb 8.1 L Hct 26.3 L MCV MCH 27 L MCHC RDW 16.3 H Lymph % (Auto) 10.1 L Lymph # 0.7 L Seg Neutrophils % 83.9 H PT INR D-Dimer Heparin Anti-Xa Level Potassium 5.3 H Chloride Carbon Dioxide 17 L D BUN 45 H Creatinine 2.0 H Glucose 251 H POC Glucose Calcium AST CK-MB (CK-2) CK-MB (CK-2) Rel Index Troponin T 0.599 H* D NT-Pro-B Natriuret Pep Triglycerides PTH Intact Urine Creatinine 03/29/19 03/29/19 03/29/19 03:33 04:38 07:35 RBC Hgb Hct MCV MCH MCHC RDW Lymph % (Auto) Lymph # Seg Neutrophils % PT INR D-Dimer Heparin Anti-Xa Level 0.79 H Potassium 5.3 H Chloride 108.0 H Carbon Dioxide 19 L BUN 47 H Creatinine 2.1 H Glucose 173 H POC Glucose Calcium AST CK-MB (CK-2) CK-MB (CK-2) Rel Index Troponin T 0.678 H* NT-Pro-B Natriuret Pep Triglycerides PTH Intact Urine Creatinine 03/29/19 03/29/19 03/29/19 07:42 12:03 13:20 RBC Hgb Hct MCV MCH MCHC RDW Lymph % (Auto) Lymph # Seg Neutrophils % PT 18.6 H INR 1.53 H D-Dimer Heparin Anti-Xa Level Potassium Chloride Carbon Dioxide BUN Creatinine Glucose POC Glucose 139 H 165 H Calcium AST CK-MB (CK-2) CK-MB (CK-2) Rel Index Troponin T NT-Pro-B Natriuret Pep Triglycerides PTH Intact Urine Creatinine 03/29/19 03/29/19 03/29/19 13:57 20:19 21:15 RBC Hgb Hct MCV MCH MCHC RDW Lymph % (Auto) Lymph # Seg Neutrophils % PT INR D-Dimer Heparin Anti-Xa Level Potassium Chloride Carbon Dioxide BUN Creatinine Glucose POC Glucose 133 H 166 H 156 H Calcium AST CK-MB (CK-2) CK-MB (CK-2) Rel Index Troponin T NT-Pro-B Natriuret Pep Triglycerides PTH Intact Urine Creatinine 03/30/19 03/30/19 03/30/19 00:06 01:06 07:02 RBC Hgb 8.6 L Hct 27.5 L MCV MCH MCHC RDW Lymph % (Auto) Lymph # Seg Neutrophils % PT 17.2 H INR 1.38 H D-Dimer Heparin Anti-Xa Level 0.22 L Potassium Chloride Carbon Dioxide BUN Creatinine Glucose POC Glucose 129 H Calcium AST CK-MB (CK-2) CK-MB (CK-2) Rel Index Troponin T NT-Pro-B Natriuret Pep Triglycerides PTH Intact Urine Creatinine 03/30/19 03/30/19 03/30/19 07:02 07:02 07:51 RBC Hgb Hct MCV MCH MCHC RDW Lymph % (Auto) Lymph # Seg Neutrophils % PT INR D-Dimer Heparin Anti-Xa Level Potassium Chloride 107.3 H Carbon Dioxide 16 L BUN 53 H Creatinine 2.1 H Glucose 133 H POC Glucose 139 H Calcium AST CK-MB (CK-2) CK-MB (CK-2) Rel Index Troponin T 0.688 H* NT-Pro-B Natriuret Pep Triglycerides PTH Intact 74.02 H Urine Creatinine 03/30/19 03/30/19 03/30/19 11:46 16:02 21:02 RBC Hgb Hct MCV MCH MCHC RDW Lymph % (Auto) Lymph # Seg Neutrophils % PT INR D-Dimer Heparin Anti-Xa Level Potassium Chloride Carbon Dioxide BUN Creatinine Glucose POC Glucose 122 H 267 H 121 H Calcium AST CK-MB (CK-2) CK-MB (CK-2) Rel Index Troponin T NT-Pro-B Natriuret Pep Triglycerides PTH Intact Urine Creatinine 03/30/19 03/31/19 03/31/19 23:04 06:40 06:40 RBC Hgb Hct MCV MCH MCHC RDW Lymph % (Auto) Lymph # Seg Neutrophils % PT INR D-Dimer Heparin Anti-Xa Level 0.26 L < 0.10 L Potassium Chloride Carbon Dioxide 18 L BUN 57 H Creatinine 2.2 H Glucose 133 H POC Glucose Calcium 8.1 L AST CK-MB (CK-2) CK-MB (CK-2) Rel Index Troponin T NT-Pro-B Natriuret Pep Triglycerides PTH Intact Urine Creatinine 03/31/19 03/31/19 03/31/19 07:45 08:15 11:20 RBC Hgb Hct MCV MCH MCHC RDW Lymph % (Auto) Lymph # Seg Neutrophils % PT INR D-Dimer Heparin Anti-Xa Level Potassium Chloride Carbon Dioxide BUN Creatinine Glucose POC Glucose 138 H 312 H Calcium AST CK-MB (CK-2) CK-MB (CK-2) Rel Index Troponin T NT-Pro-B Natriuret Pep Triglycerides PTH Intact Urine Creatinine 69.2 H 03/31/19 03/31/19 04/01/19 16:42 21:32 07:05 RBC Hgb 7.8 L Hct 25.5 L MCV MCH MCHC RDW Lymph % (Auto) Lymph # Seg Neutrophils % PT INR D-Dimer Heparin Anti-Xa Level Potassium Chloride Carbon Dioxide BUN Creatinine Glucose POC Glucose 245 H 113 H Calcium AST CK-MB (CK-2) CK-MB (CK-2) Rel Index Troponin T NT-Pro-B Natriuret Pep Triglycerides PTH Intact Urine Creatinine 04/01/19 04/01/19 04/01/19 07:05 12:41 17:03 RBC Hgb Hct MCV MCH MCHC RDW Lymph % (Auto) Lymph # Seg Neutrophils % PT INR D-Dimer Heparin Anti-Xa Level Potassium Chloride Carbon Dioxide 19 L BUN 66 H Creatinine 2.0 H Glucose 147 H POC Glucose 225 H 269 H Calcium 8.3 L AST CK-MB (CK-2) CK-MB (CK-2) Rel Index Troponin T NT-Pro-B Natriuret Pep Triglycerides PTH Intact Urine Creatinine
--- NOTE | 2019-04-01 19:02 | Progress Note ---
Assessment and Plan Assessment and plan: The patient is a 73 YO female with history significant for DM-2 and HTN who presented to [facility] ED with complaint of cough and feeling unwell. Patient states that she having non-productive coughing for the past week and associated with rhinorrhea. Patient had exhibited increased work of breathing and subsequently family brought patient to the ED for evaluation. Of note the patient recently drove from [place] to [place]. Labs significant for Creat 1.9, K 6 and bicarb 7. Acute hypoxic respiratory failure - likely from CHF exacerbation on pleural effusion - cont diuretics, thoracentesis ordered - Decrease lasix b/c of worsening renal function --No ACEI/ARB at this time in setting of renal insufficiency. Acute kidney injury: Vasomotor VINEET in the setting of Acute CHF. Worsening renal vwfusugy30/1.9 to 57/2.2 Will decrease lasix Acute CHF, likely systolic Followed by Cards. cont Diuretics.monitor ons/os 2d echo NSTEMI likely type 2 - ischemic work up per cardiology - cont aspirin and statin Despite significant ischemia on stress MPI, her renal failure puts her at significant risk of contrast nephropathy. In the absence of ongoing anginal symptoms, she will be managed medically at this time. Hyperkalemia from declining renal function, kayexalate ordered, follow bmp Normochromic anemia: monitor h/h, likely from CD Suspected pneumonia: Continue antibiotics DM type 2 consistent carb diet, SSI HTN - hydralazine iv as needed - monitor BP, adjust BP meds as needed Dvt Px, CAN DISCHARGE IN AM IF STABLE RENAL FUNCTION History Interval history: Patient seen and examined resting comfortably at this time. No adverse event reported overnight Hospitalist Physical - Physical exam Narrative exam: VITAL SIGNS: Reviewed. GENERAL: The patient appears normally developed, Vital signs as documented. HEAD: No signs of head trauma. EYES: Pupils are equal. Extraocular motions intact. EARS: Hearing grossly intact. MOUTH: Oropharynx is normal. NECK: No adenopathy, no JVD. CHEST: Chest with clear breath sounds bilaterally. No wheezes, rales, or rhonchi. CARDIAC: Regular rate and rhythm. S1 and S2, without murmurs, gallops, or r ubs. VASCULAR:. Trace edema. Peripheral pulses normal and equal in all extremities. ABDOMEN: Soft, non tender and non distended. No rebound or guarding, and no masses palpated. Bowel Sounds normal. MUSCULOSKELETAL: Good range of motion of all major joints. Extremities without clubbing, cyanosis. Trace edema. NEUROLOGIC EXAM: Alert and oriented x 3 No focal sensory or strength defici ts. Speech normal. Follows commands. PSYCHIATRIC: Mood normal. SKIN: detial exam as documented in skin assessment - Constitutional Vitals: Temp Pulse Resp BP Pulse Ox 98.1 F 85 18 137/70 98 04/01/19 16:18 04/01/19 16:18 04/01/19 16:18 04/01/19 16:18 04/01/19 16:18 General appearance: Present: no acute distress, well-nourished Results - Labs CBC & Chem 7: 04/01/19 07:05 04/01/19 07:05 Labs: Laboratory Last Values WBC 7.0 K/mm3 (4.5-11.0) 03/29/19 03:33 RBC 3.01 M/mm3 (3.65-5.03) L 03/29/19 03:33 Hgb 7.8 gm/dl (10.1-14.3) L 04/01/19 07:05 Hct 25.5 % (30.3-42.9) L 04/01/19 07:05 MCV 87 fl (79-97) 03/29/19 03:33 MCH 27 pg (28-32) L 03/29/19 03:33 MCHC 31 % (30-34) 03/29/19 03:33 RDW 16.3 % (13.2-15.2) H 03/29/19 03:33 Plt Count 201 K/mm3 (140-440) 04/01/19 07:05 Lymph % (Auto) 10.1 % (13.4-35.0) L 03/29/19 03:33 Towner % (Auto) 5.9 % (0.0-7.3) 03/29/19 03:33 Eos % (Auto) 0.0 % (0.0-4.3) 03/29/19 03:33 Baso % (Auto) 0.1 % (0.0-1.8) 03/29/19 03:33 Lymph # 0.7 K/mm3 (1.2-5.4) L 03/29/19 03:33 Towner # 0.4 K/mm3 (0.0-0.8) 03/29/19 03:33 Eos # 0.0 K/mm3 (0.0-0.4) 03/29/19 03:33 Baso # 0.0 K/mm3 (0.0-0.1) 03/29/19 03:33 Seg Neutrophils % 83.9 % (40.0-70.0) H 03/29/19 03:33 Seg Neutrophils # 5.9 K/mm3 (1.8-7.7) 03/29/19 03:33 PT 17.2 Sec. (12.2-14.9) H 03/30/19 01:06 INR 1.38 (0.87-1.13) H 03/30/19 01:06 APTT 29.7 Sec. (24.2-36.6) 03/28/19 16:23 D-Dimer 1679.54 ng/mlDDU (0-234) H 03/28/19 17:48 Heparin Anti-Xa Level < 0.10 U.I./ml (0.3-0.7) L 03/31/19 06:40 Sodium 138 mmol/L (137-145) 04/01/19 07:05 Potassium 4.4 mmol/L (3.6-5.0) 04/01/19 07:05 Chloride 102.3 mmol/L (98-107) 04/01/19 07:05 Carbon Dioxide 19 mmol/L (22-30) L 04/01/19 07:05 Anion Gap 21 mmol/L 04/01/19 07:05 BUN 66 mg/dL (7-17) H 04/01/19 07:05 Creatinine 2.0 mg/dL (0.7-1.2) H 04/01/19 07:05 Estimated GFR 24 ml/min 04/01/19 07:05 BUN/Creatinine Ratio 33 % 04/01/19 07:05 Glucose 147 mg/dL (65-100) H 04/01/19 07:05 POC Glucose 269 (70-105) H 04/01/19 17:03 Calcium 8.3 mg/dL (8.4-10.2) L 04/01/19 07:05 Phosphorus 3.70 mg/dL (2.5-4.5) 03/30/19 07:02 Total Bilirubin 1.00 mg/dL (0.1-1.2) 03/28/19 16:23 AST 124 units/L (5-40) H 03/28/19 16:23 ALT 48 units/L (7-56) 03/28/19 16:23 Alkaline Phosphatase 126 units/L (35-129) 03/28/19 16:23 Total Creatine Kinase 95 units/L (30-135) 03/28/19 16:23 CK-MB (CK-2) 6.2 ng/mL (0.0-4.0) H 03/28/19 16:23 CK-MB (CK-2) Rel Index 6.5 (0-4) H 03/28/19 16:23 Troponin T 0.688 ng/mL (0.00-0.029) H* 03/30/19 07:02 NT-Pro-B Natriuret Pep > 31442 pg/mL (0-900) H 03/28/19 16:23 Total Protein 7.0 g/dL (6.3-8.2) 03/28/19 16:23 Albumin 4.2 g/dL (3.9-5) 03/28/19 16:23 Albumin/Globulin Ratio 1.5 % 03/28/19 16:23 Triglycerides 156 mg/dL (2-149) H 03/28/19 16:23 Cholesterol 156 mg/dL (50-199) 03/28/19 16:23 LDL Cholesterol Direct 93 mg/dL (50-130) 03/28/19 16:23 HDL Cholesterol 56 mg/dL (40-59) 03/28/19 16:23 Cholesterol/HDL Ratio 2.78 % 03/28/19 16:23 TSH 3.480 mlU/mL (0.270-4.200) 03/28/19 16:23 Free T4 1.41 ng/dL (0.76-1.46) 03/28/19 16:23 PTH Intact 74.02 pg/mL (15-65) H 03/30/19 07:02 Urine Color Yellow (Yellow) 03/31/19 07:45 Urine Turbidity Clear (Clear) 03/31/19 07:45 Urine pH 5.0 (5.0-7.0) 03/31/19 07:45 Ur Specific [place] 1.011 (1.003-1.030) 03/31/19 07:45 Urine Protein <15 mg/dl mg/dL (Negative) 03/31/19 07:45 Urine Glucose (UA) Neg mg/dL (Negative) 03/31/19 07:45 Urine Ketones Neg mg/dL (Negative) 03/31/19 07:45 Urine Blood Neg (Negative) 03/31/19 07:45 Urine Nitrite Neg (Negative) 03/31/19 07:45 Urine Bilirubin Neg (Negative) 03/31/19 07:45 Urine Urobilinogen < 2.0 mg/dL (<2.0) 03/31/19 07:45 Ur Leukocyte Esterase Neg (Negative) 03/31/19 07:45 Urine WBC (Auto) < 1.0 /HPF (0.0-6.0) 03/31/19 07:45 Urine RBC (Auto) 1.0 /HPF (0.0-6.0) 03/31/19 07:45 U Epithel Cells (Auto) 1.0 /HPF (0-13.0) 03/31/19 07:45 Hyaline Casts 9 /LPF 03/31/19 07:45 Urine Eosinophils None seen (None Seen) 03/31/19 07:00 Urine Creatinine 69.2 mg/dL (0.1-20.0) H 03/31/19 07:45 Urine Sodium 69 mmol/L 03/31/19 07:45 Influenza A (Rapid) Negative (Negative) 03/28/19 Unknown Influenza B (Rapid) Negative (Negative) 03/28/19 Unknown Active Medications - Current Medications Current Medications: Generic Name Dose Route Start Last Admin Trade Name Freq PRN Reason Stop Dose Admin Aspirin 81 mg 04/02/19 10:00 Baby Aspirin PO QDAY SUDHIR Atorvastatin Calcium 20 mg 04/01/19 22:00 Lipitor PO QHS SUDHIR Benzonatate 100 mg 03/30/19 02:00 04/01/19 17:52 Tessalon Perles PO 100 mg Q6HR SUDHIR Administration Carvedilol 6.25 mg 03/30/19 10:00 04/01/19 17:47 Coreg PO Not Given BID SUDHIR Dextrose 0 ml 03/28/19 23:02 D50w (25gm) Syringe IV Q30MIN PRN Hypoglycemia Protocol Furosemide 40 mg 03/31/19 15:00 04/01/19 17:52 Lasix IV 40 mg QDAY SUDHIR Administration Hydralazine HCl 10 mg 03/28/19 22:35 Apresoline IV Q6H PRN FOR SBP > target Levofloxacin/Dextrose 750 mg in 150 mls @ 100 mls/hr 03/29/19 10:00 03/31/19 09:26 Levaquin 750mg/150ml IV 100 mls/hr Q48HR SUDHIR Administration Protocol Insulin Human Lispro 0 unit 03/29/19 07:30 04/01/19 12:00 Humalog SUB-Q Not Given ACHS [facility] Protocol Isosorbide Mononitrate 30 mg 04/02/19 10:00 Imdur PO QDAY SUDHIR Nitroglycerin 0.4 mg 03/28/19 22:35 Nitrostat SL .Q5MIN PRN Chest Pain Ondansetron HCl 4 mg 03/30/19 01:37 03/30/19 01:49 Zofran IV 4 mg Q8H PRN Administration Nausea And Vomiting Sodium Chloride 10 ml 03/28/19 22:35 03/30/19 01:52 Sodium Chloride Flush Syringe 10 Ml IV 10 ml PRN PRN Administration LINE FLUSH Nutrition/Malnutrition Assess - Dietary Evaluation Nutrition/Malnutrition Findings: Nutrition Notes Start: 03/29/19 13:28 Freq: Status: Active Protocol: Document 03/30/19 15:58 LM (Rec: 03/30/19 16:11 LM [id number]) Nutrition Notes Need for Assessment generated from: MD Order,Education Initial or Follow up Assessment Current Diagnosis Diabetes,Hypertension,Heart Failure,Hyperlipidemia Other Pertinent Diagnosis DVT Current Diet NPO Labs/Tests POC glu 267 Pertinent Medications Lasix Height 5 ft 2 in Weight 76.2 kg [place] Body Weight (kg) 50.00 BMI 30.7 Subjective/Other Information Pt NPO for thoracentesis. Pt speaks some Trinid[place]. Used cerner analyst phone for assessment (phone already set up in room). Pt stated she has had wt loss of about 4 lb but does not know time frame. Pt stated her UBW is 170 lb. 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 Provided DM diet ecuaction handout in Bhutanese for PT. Burn Absent Trauma Absent Current % PO Negligible Minimum of two criteria No physical signs of malnutrition Energy Intake (severe) < or equal to 50% Estimated Energy Requirement > or equal to 5 days #2 Nutrition Diagnosis Food and nutrition-related knowledge deficit Etiology no prior DM diet education As Evidenced by Signs and Symptoms pt needing DM diet education, POC glu 267 #1 Nutrition Diagnosis Inadequate oral intake Etiology pt with cough, chronic illness As Evidenced by Signs and Symptoms pt not eating well for 2-3 weeks, pt NPO Is patient on ventilator? No Is Patient Ambulatory and/or Out of Bed No REE-([place]-St. Jeor-confined to bed) [phone] Calculation [facility]ations [facility] Additional Notes Protein: 50-91g (0.8-1.2g/kg using AdjBW 63 kg) Fluid: 1 ml/kcal or per MD Nutrition Intervention Change Diet Order: Diet advancemnet to Consistent CHO when medically feasible Teaching Recipient Patient Learning Readiness Good Teaching Methods Handout Response to Teaching Verbalize understanding Barriers to Learning Language RD phone number provided Yes Patient aware of follow up options Yes Goal #1 diet advancement Anticipated Discharge Needs: Consistent CHO Follow-Up By: 04/02/19 Additional Comments F/U for diet advancement
[2019-04-01] MEDS ORDERED: guaiFENesin DM 200/20 MG ORAL LIQD 10 ML PO PRN (21:00)
[2019-04-02] MEDS: ASPIRIN EC 325 MG TAB PO SCH
[2019-04-02] MEDS: BENZONATATE 100 MG CAP PO SCH ×2 (05:17→13:51)
--- NOTE | 2019-04-02 08:08 | XRay Report ---
CHEST 1 VIEW 0752 hours INDICATION / CLINICAL INFORMATION: sob; pleural effusion; comparison. COMPARISON: 03/28/2019 FINDINGS: SUPPORT DEVICES: None. HEART / MEDIASTINUM: Stable cardiomegaly. LUNGS / PLEURA: Decreased pulmonary venous congestion since the previous exam. The lungs are generall y clear. Small pleural effusions have resolved. No pneumothorax. ADDITIONAL FINDINGS: No significant additional findings. IMPRESSION: Mild cardiomegaly. Lungs generally clear. Signer Name: Alex Molina Jr, MD Signed: 04/02/2019 8:03 AM Workstation Name: [id number]
[2019-04-02] MEDS: INSULIN LISPRO 100 UNIT/ML SUB-Q SCH ×2 (08:51→13:50)
[2019-04-02] MEDS ORDERED: carvediloL 6.25 MG TAB PO SCH (09:11)
[2019-04-02 09:14] VITALS: BP 119/54
[2019-04-02] MEDS ORDERED: ASPIRIN 81 MG TAB CHEW PO SCH (10:00)
[2019-04-02] MEDS ORDERED: carvediloL 3.125 MG TAB PO SCH (10:00)
[2019-04-02 11:05] LABS: Hematocrit 21.6 % (30.3-42.9); Hemoglobin 6.8 gm/dl (10.1-14.3); Mean Corpuscular HGB Conc 31 % (30-34); Mean Corpuscular Volume 85 fl (79-97); Platelet Count 151 K/mm3 (140-440); Red Blood Count 2.54 M/mm3 (3.65-5.03); Red Cell Distribution Width 16.8 % (13.2-15.2)
--- NOTE | 2019-04-02 11:07 | Progress Note ---
Assessment and Plan Currently stable cardiac status. No current cardiac complaints. BP noted to be hypotensive overnight - Hold Imdur and decrease coreg dosage. Convert IV lasix to PO lasix. No ACEI/ARB at this time in setting of renal insufficiency. Nothing further to add from cardiac perspective at this time. Will sign off. Recommend pt follow up in our office with Dr. Velez within 3-5 days of discharge ([phone]). The patient has been seen in conjunction with Dr. Hernandez who agrees with the assessment and plan of care. - Patient Problems (1) Acute HFrEF (heart failure with reduced ejection fraction) Current Visit: Yes Status: Acute (2) Pleural effusion Current Visit: Yes Status: Acute (3) Cardiomyopathy Current Visit: Yes Status: Chronic (4) Acute on chronic renal failure Current Visit: Yes Status: Acute (5) Hyperkalemia Current Visit: Yes Status: Acute (6) NSTEMI (non-ST elevated myocardial infarction) Current Visit: Yes Status: Acute (7) HTN (hypertension) Current Visit: Yes Status: Acute Subjective Date of service: 04/02/19 Principal diagnosis: HF Interval history: pt resting in bed, no current complaints. Objective Last Vital Signs Temp 98.1 F 04/02/19 07:16 Pulse 86 04/02/19 06:51 Resp 18 04/02/19 07:16 BP 119/54 04/02/19 07:16 Pulse Ox 95 04/02/19 04:32 - Physical Examination General: No Apparent Distress HEENT: Positive: PERRL Neck: Positive: neck supple, trachea midline Cardiac: Positive: Reg Rate and Rhythm, S1/S2 Lungs: Positive: Decreased Breath Sounds Neuro: Positive: Grossly Intact Abdomen: Positive: Unremarkable Skin: Negative: Rash Extremities: Present: +1 Edema, +2 Edema - Imaging and Cardiology EKG: report reviewed Echo: report reviewed (EF 20-25%, LA severely dilated, mild MR, mild TR, impaired relaxation, RV mildly dilated, small pericardial effusion, mod pleural effusion. )
[2019-04-02 11:39] LABS: Calcium 8.4 mg/dL (8.4-10.2)
--- NOTE | 2019-04-02 14:22 | Discharge Summary ---
Providers - Providers Date of Admission: 03/28/19 22:03 Date of discharge: 04/02/19 Attending physician: MARY MACKEY 03/28/19 Consult to Cardiac Rehabilitation [CONS] Routine Reason For Exam: Phase I 03/28/19 22:35 Consult to Cardiology [CONS] Routine Consulting Provider: HENRY LYNNE Reason For Exam: NSTEMI 03/28/19 23:02 Consult to Dietitian/Nutrition [CONS] Routine Physician Instructions: Reason For Exam: Reason for Consult: Diet education 03/29/19 08:36 Consult to Physician [CONS] Routine Comment: Consulting Provider: SUBHA TEJADA Physician Instructions: Reason For Exam: inventory administrator 03/29/19 11:30 Consult to Physician [CONS] Routine Comment: Consulting Provider: MARIANNA DOUGLASS Physician Instructions: Reason For Exam: amanuel Primary care physician: SPOT CLEANER Hospitalization Condition: Fair Pertinent studies: Positive nuclear medicine MPI stress test Hospital course: The patient is a 73 YO female with history significant for DM-2 and HTN who presented to [facility] ED with complaint of cough and feeling unwell. Patient states that she having non-productive coughing for the past week and associated with rhinorrhea. Patient had exhibited increased work of breathing and subsequently family brought patient to the ED for evaluation. Of note the patient recently drove from [place] to [place]. Labs significant for Creat 1.9, K 6 and bicarb 7. Acute hypoxic respiratory failure - likely from CHF exacerbation on pleural effusion - cont Lasix --No ACEI/ARB at this time in setting of renal insufficiency. Chronic kidney disease stage IV Nephrology note reviewed Continue Lasix Follow-up with nephrology Acute CHF, likely systolic Followed with cardiology 1 week cont Diuretics. Low-dose beta kev Echocardiogram EF 20 - 25% NSTEMI likely type 2 - ischemic work up per cardiology - cont aspirin and statin Despite significant ischemia on stress MPI, her renal failure puts her at significant risk of contrast nephropathy. In the absence of ongoing anginal symptoms, she will be managed medically at this time per cardiology recommen dations Hyperkalemia Improved Normochromic anemia: monitor h/h, likely from CD Suspected pneumonia: Repeat chest x-ray done this morning shows no acute infiltrate We will discontinue antibiotic HTN - patient's blood pressure is low normal Disposition: DC-30 STILL A PATIENT Time spent for discharge: 38 min Core Measure Documentation - Palliative Care Palliative Care/ Comfort Measures: Not Applicable - Core Measures Any of the following diagnoses?: heart failure - Heart Failure Discharge Requirements OLIVER/ARB for LVSD if EF <40%: No Reason for no OLIVER/ARB: Renal impairment Beta kev at discharge: Yes Exam - Constitutional Vitals: Temp Pulse Resp BP Pulse Ox 98.1 F 86 18 119/54 95 04/02/19 07:16 04/02/19 06:51 04/02/19 07:16 04/02/19 07:16 04/02/19 04:32 General appearance: Present: no acute distress - EENT Eyes: Present: PERRL, EOM intact ENT: hearing intact, clear oral mucosa - Neck Neck: Present: supple. Absent: masses or JVD - Respiratory Respiratory effort: normal Respiratory: bilateral: CTA, diminished - Cardiovascular Rhythm: regular Heart Sounds: Present: S1 & S2 - Extremities Extremity abnormal: edema - Abdominal General gastrointestinal: Present: soft, non-tender - Rectal Rectal Exam: deferred - Integumentary Integumentary: Present: clear - Musculoskeletal Musculoskeletal: strength equal bilaterally - Psychiatric Psychiatric: appropriate mood/affect - Neurologic Neurologic: no focal deficits Plan Activity: advance as tolerated Weight Bearing Status: Weight Bear as Tolerated Diet: regular, low fat, low cholesterol, low salt Special Instructions: restrict fluid intake to (1200 ml/day) Follow up with: PRIMARY CARE, [Primary Care Provider] - 3-5 Days HENRY LYNNE MD [Staff Physician] - 7 Days Prescriptions: carvediloL [Coreg] 3.125 mg PO BID #60 tablet Furosemide [Lasix TAB] 40 mg PO QDAY #30 tablet AtorvaSTATin [Lipitor] 20 mg PO QHS #30 tablet
[2019-04-02] MEDS: ONDANSETRON 4 MG/2 ML INJ IV PRN (15:48)
--- NOTE | 2019-04-02 15:59 | Progress Note ---
Assessment and Plan 1. Acute kidney injury: Vasomotor VINEET in the setting of Acute CHF. Baseline renal function is unknown. Renal US negative. UA bland. Renal function is better today. Suspect CKD stage 3. Monitor renal function. Renal prognosis is guarded. Avoid nephrotoxic agents. Meds dosage based on GFR. 2. FEN: Anion-gap metabolic acidosis, improving. Hyperkalemia, improved. Monitor lytes. 3. Decompensated CHF: Followed by Cards. Diuretics. 4. NSTEMI. 5. Normochromic anemia: POA. 6. Suspected pneumonia: Continue antibiotics. 7. DM type 2. 8. HTN. Examination: General appearance: well-developed, well-nourished, appears stated age, obese, no distress HEENT: ATNC, RITCHIE, hearing intact Neck: neck supple, trachea midline Respiratory: faint bibasal rales Heart: regular, S1S2, no murmur Gastrointestinal: soft, normoactive bowel sounds, not tender Integumentary: no rash, warm and dry Neurologic: conversing, able to move extremities Ext: no edema Subjective Date of service: 04/02/19 Principal diagnosis: HF Interval history: Patient was seen and examined at the bedside. Doing ok. at the bedside. Objective - Vital Signs Vital signs: Vital Signs - 12hr 04/02/19 04/02/19 04/02/19 04:32 04:47 06:51 Temperature 98.8 F 98.8 F Pulse Rate 81 86 Respiratory 18 18 Rate Blood Pressure 77/34 90/37 Blood Pressure 92/44 [Left] O2 Sat by Pulse 95 Oximetry 04/02/19 07:16 Temperature 98.1 F Pulse Rate Respiratory 18 Rate Blood Pressure 119/54 Blood Pressure [Left] O2 Sat by Pulse Oximetry - Lab 04/02/19 10:56 04/02/19 08:51 Most recent lab results Calcium 8.4 mg/dL (8.4-10.2) 04/02/19 08:51 Phosphorus 3.70 mg/dL (2.5-4.5) 03/30/19 07:02 Magnesium 1.80 mg/dL (1.7-2.3) 04/02/19 08:51 Urine Creatinine 69.2 mg/dL (0.1-20.0) H 03/31/19 07:45 Urine Sodium 69 mmol/L 03/31/19 07:45 Medications & Allergies - Medications Allergies/Adverse Reactions: Allergies codeine Adverse Reaction (Verified 03/28/19 17:31) Anaphylaxis Penicillins Adverse Reaction (Verified 03/28/19 17:31) Anaphylaxis Home Medications: Home Medications Medication Instructions Recorded Confirmed Last Taken Type Aspirin [Aspirin BABY CHEW TAB] 81 mg PO QDAY tab.chew 04/02/19 Unknown Rx AtorvaSTATin [Lipitor] 20 mg PO QHS #30 tablet 04/02/19 Unknown Rx Furosemide [Lasix TAB] 40 mg PO QDAY #30 tablet 04/02/19 Unknown Rx carvediloL [Coreg] 3.125 mg PO BID #60 tablet 04/02/19 Unknown Rx Active Medications: Generic Name Dose Route Start Last Admin Trade Name Freq PRN Reason Stop Dose Admin Aspirin 81 mg 04/02/19 10:00 04/02/19 10:05 Baby Aspirin PO 81 mg QDAY SUDHIR Administration Atorvastatin Calcium 20 mg 04/01/19 22:00 04/01/19 23:23 Lipitor PO 20 mg QHS SUDHIR Administration Benzonatate 100 mg 03/30/19 02:00 04/02/19 13:51 Tessalon Perles PO 100 mg Q6HR SUDHIR Administration Carvedilol 3.125 mg 04/02/19 10:00 04/02/19 10:05 Coreg PO 3.125 mg BID SUDHIR Administration Dextrose 0 ml 03/28/19 23:02 D50w (25gm) Syringe IV Q30MIN PRN Hypoglycemia Protocol Furosemide 40 mg 04/03/19 10:00 Lasix PO QDAY SUDHIR Guaifenesin 20 ml 04/01/19 21:00 Guaifenesin Dm Syrup PO 04/03/19 23:59 Q4H PRN Cough Levofloxacin/Dextrose 750 mg in 150 mls @ 100 mls/hr 03/29/19 10:00 04/02/19 10:05 Levaquin 750mg/150ml IV 100 mls/hr Q48HR SUDHIR Administration Protocol Insulin Human Lispro 0 unit 03/29/19 07:30 04/02/19 13:50 Humalog SUB-Q 6 unit ACHS SUDHIR Administration Protocol Nitroglycerin 0.4 mg 03/28/19 22:35 Nitrostat SL .Q5MIN PRN Chest Pain Ondansetron HCl 4 mg 03/30/19 01:37 04/02/19 15:48 Zofran IV 4 mg Q8H PRN Administration Nausea And Vomiting Sodium Chloride 10 ml 03/28/19 22:35 03/30/19 01:52 Sodium Chloride Flush Syringe 10 Ml IV 10 ml PRN PRN Administration LINE FLUSH
[2019-04-03] MEDS ORDERED: FUROSEMIDE 40 MG TAB PO SCH (10:00)
== END 2019-04-02 17:08 | disposition home or self-care (01) | DRG 280 ==
LOC: ED 15:23 → CC1 22:03 → 4A 03-29 20:05
PROVIDERS: ADMIT Internal Medicine Geriatric Medicine; ATTEND Internal Medicine
PROC: 5A09357 Assistance with Respiratory Ventilation, Less than 24 Consecutive Hours, Continuous Positive Airway Pressure (ICD-10-PCS; principal; 2019-03-28)
PROC: 5A09357 Assistance with Respiratory Ventilation, Less than 24 Consecutive Hours, Continuous Positive Airway Pressure (ICD-10-PCS; 2019-03-29)
DX: I13.0 Hypertensive heart and chronic kidney disease with heart failure and stage 1 through stage 4 chronic kidney disease, or unspecified chronic kidney disease (principal); I50.21 Acute systolic (congestive) heart failure; I21.A1 Myocardial infarction type 2; J18.9 Pneumonia, unspecified organism; J96.01 Acute respiratory failure with hypoxia; N18.4 Chronic kidney disease, stage 4 (severe); N17.9 Acute kidney failure, unspecified; E78.00 Pure hypercholesterolemia, unspecified; I42.9 Cardiomyopathy, unspecified; D64.9 Anemia, unspecified; E87.5 Hyperkalemia; Z88.5 Allergy status to narcotic agent; Z88.0 Allergy status to penicillin; Z90.49 Acquired absence of other specified parts of digestive tract
CPT/HCPCS: 36415; 71045; 76604; 76770; 78452; 78582; 80048; 80053; 80061; 81001; 82550; 82553; 82570; 82962; 83735; 83880; 83970; 84100; 84300; 84439; 84443; 84484; 85014; 85018; 85025; 85027; 85049; 85379; 85520; 85610; 85730; 87040; 87400; 89050; 93005; 93010; 93017; 93306; 94644; 94660; 94760; G0378; A9270-GY; A9502; A9540; A9558; J0610; J1644; J1815; J1940; J1956; J2405; J2785